=== PATIENT | female | born 1940 | race Caucasian/White ===

== ENCOUNTER 2023-03-18 12:04 | Emergency (ER) | payer OTHER, SELFPAY ==
[2023-03-18 12:05] VITALS: BP 108/63
[2023-03-18 13:33] VITALS: BMI 21.9
[2023-03-18 14:01] LABS: % Basophils 0.5 % (0-2); % Eosinophils 0.4 % (0-6); % Immature Granulocytes 0.4 % (0-0.5); % Lymphocytes 11.4 % (20.5-51.1); % Monocytes 5.5 % (1.7-9.3); % Neutrophils 81.8 % (42.2-75.2); Absolute Lymphocytes 0.9 10^3/uL (1.2-3.4); Absolute Monocytes 0.4 10^3/uL (0.1-0.6); Absolute Neutrophils 6.4 10^3/uL (1.4-6.5); Hematocrit 28.8 % (37.0-47.0); Hemoglobin 9.7 g/dL (12.0-16.0); Mean Corp Hgb Conc. 33.7 g/dL (33.0-37.0); Mean Corpuscular Hgb 31.3 pg (27.0-31.0); Mean Corpuscular Volume 92.9 fL (81.0-99.0); Nucleated Red Blood Cells % 0 %; Platelet Count 198 10^3/uL (130-400); Red Cell Dist. Width 13.2 % (11.5-14.5); White Blood Cell Count 7.8 10^3/uL (4.8-10.8)
[2023-03-18 14:05] VITALS: BP 104/71
[2023-03-18 14:18] LABS: ALT (SGPT) 15 U/L (0-35); AST (SGOT) 25 U/L (14-36); Albumin 3.9 g/dl (3.5-5.0); Alkaline Phosphatase 69 U/L (38-126); Blood Urea Nitrogen 44 mg/dl (7-17); Calcium 8.9 mg/dl (8.4-10.2); Carbon Dioxide 27 mmol/L (22-30); Chloride 102 mmol/L (98-107); Estimated Creatinine Clearance 40 ml/min; Glucose 83 mg/dl (70-99); Potassium 4.8 mmol/L (3.5-5.1); Sodium 134 mmol/L (135-145); Total Bilirubin 0.6 mg/dl (0.2-1.3); Total Protein 6.5 g/dl (6.3-8.2)
[2023-03-18 14:44] LABS: Troponin I < 0.012 ng/ml
[2023-03-18 15:00] VITALS: BP 121/77
[2023-03-18 15:17] LABS: Urine Albumin Negative (Neg - Trace); Urine Bilirubin Negative (Negative); Urine Character Clear (Clear); Urine Color Yellow; Urine Glucose Negative (Negative); Urine Ketone Negative (Negative); Urine Leukocyte Negative (Negative); Urine Nitrite Negative (Negative); Urine Occult Blood Negative (Negative); Urine Specific Gravity 1.015 (<1.030); Urine Urobilinogen Negative (Neg - 1+)
--- NOTE | 2023-03-18 15:36 | ED.GENMED ---
History of Present Illness
General
Chief Complaint: Cardiac Symptoms
Source: patient and records
Exam Limitations: none
Time Seen by Provider: 03/18/23 13:24
Nursing documentation reviewed up to this point in time: agreed with
Travel History
Have you had any contact with someone who has COVID-19?: No
Do you have any symptoms of coronavirus? Fever > 100 degrees, chills, cough, shortness of breath, sore throat, loss of taste or smell, muscle aches, or headache?: No
History of Present Illness
History of Present Illness:
Patient is an 82-year-old female who presents to the emergency department believing she is in atrial fibrillation. Patient states it started last night when she developed pain in the back of her neck that is similar to when she has atrial
fibrillation in the past. Patient is weak in the arms and legs. Patient went to the gym this morning but because of weakness after 10 minutes she stopped and felt lightheaded as though she was going to pass out. Patient states her blood pressure
last night was 113/69 with a pulse ox of 95% and a heart rate of 90. Patient denies any recent illnesses or injuries. Patient denies cough, nasal congestion, sore throat, fever or chills. Patient denies any weight changes. Patient denies
shortness of breath or palpitations. Patient denies chest pain. Patient has been constipated but denies any melena or hematochezia. Patient did feel some reflux with other night with burping and some burning in her stomach and neck.
Past History
Past History
ED Past Medical History: Arrthythmia (Atrial fibrillation), HTN and Other (mild/moderate Mitral regurgitation)
ED Past Surgical History: Gynecological (Oophorectomy due to tubal )
Social History
Tobacco: Former smoker
Alcohol: Occasional
Drug: None
Personal:
Living: with family
Review of Systems
Review of Systems
All Other Systems: ROS reviewed and negative except as documented in HPI and ROS
Constitutional: Reports fatigue; Denies fever, weight loss or chills
EENT: Reports no symptoms
Respiratory: Reports no symptoms
Cardiac: Reports no symptoms
ABD/GI: Reports constipated and other (Burping with burning in the upper abdomen); Denies nausea, vomiting, diarrhea, bloody stools, black stools or anorexia
: Reports no symptoms
Musculoskeletal: Reports neck pain
Skin: Reports no symptoms
Neurological: Reports no symptoms
Hematologic/Lymphatic: Reports no symptoms
Phy Exam
Physical Exam
Physical Exam:
Physical Exam
General: No apparent distress, alert and appropriate, well nourished, well hydrated
HENT: Normocephalic, supple with no lymphadenopathy, no thyromegaly. No tenderness to palpation and full range of motion
Eyes: Clear sclera, conjuctiva without injection
Heart: Regular rhythm and rate. No S3, S4. No murmur. No NVD, bruit
Lungs: No respiratory distress, no stridor, lung sounds clear and equal bilaterally
Abdomen: Soft, nontender, no organomegaly, no CVA tenderness, BS good
Neuro: Alert and oriented x 3, CN II - XII intact, no motor focality, no cerebellar dysfunction
Skin: no rash
Psychiatric: well kept. interactive and cooperative
Extremities: No edema, cyanosis, tenderness, Good and equal peripheral pulses.
Course
Orders/Labs/Results
Orders:
Orders
03/18/23 12:08
ECG [Electrocardiogram (*1)] Urgent
Reason for Study: Atrial Fibrillation
03/18/23 12:09
EKG- Treatment ONCE
03/18/23 13:46
CMP [Comprehensive Metabolic Panel] Urgent
Complete Blood Count/With Diff Urgent
TSH Reflex To Free T4 Urgent
03/18/23 14:05
Troponin I Urgent
03/18/23 15:08
Urinalysis Reflex To Culture Urgent
Date Specimen was Collected: 03/18/23
Time Specimen was Collected: 15:03
Abnormal Lab Results
03/18/23
13:46
RBC 3.10 L 10^6/uL
(4.20-5.40)
Hgb 9.7 L g/dL
(12.0-16.0)
Hct 28.8 L %
(37.0-47.0)
MCH 31.3 H pg
(27.0-31.0)
MPV 11.0 H fL
(7.4-10.4)
Absolute Lymphs (auto) 0.9 L 10^3/uL
(1.2-3.4)
Neutrophils % 81.8 H %
(42.2-75.2)
Lymphocytes % 11.4 L %
(20.5-51.1)
Sodium 134 L mmol/L
(135-145)
BUN 44 H mg/dl
(7-17)
Creatinine 1.1 H mg/dL
(0.6-1.0)
03/18/23 13:46
03/18/23 13:46
Vital Signs
Initial and Last Documented VS:
Initial Vital Signs
Pulse Resp BP Pulse Ox
73 18 108/63 98
03/18/23 12:05 03/18/23 12:05 03/18/23 12:05 03/18/23 12:05
Last Documented Vital Signs
Pulse Resp BP Pulse Ox
65 16 123/54 100
03/18/23 16:00 03/18/23 16:00 03/18/23 16:00 03/18/23 15:45
*Pulse Oximetry
Patient hypoxic: no
*EKG
Interpreted by ED Provider?: Yes
EKG Intrepretation Date: 03/18/23
EKG Intrepretation Time: 15:40
Interpretation: normal
Comparison EKG: no changes
Heart Rate: 66
Rate: normal
Rhythm: sinus
[place]: normal axis
Interval: normal interval
QRS Pattern: normal QRS
Ischemia: non-specific ST changes
*Accident Examiner Interpretation
Rate: normal
Interpretation: normal
Heart Rate: 66
Rhythm: sinus
*Critical Care Note
Total Time (30-74mins, 75-104mins- exclusive of procedures): Not Applicable
Update Note
Update Note:
Patient's BUN and creatinine are elevated. The BUN is significantly different from previous. Do not see the patient being on an ARB or an WAI inhibitor. Will have the patient follow back up with her family doctor and encourage hydration. This
could be why the patient feels the way she does. The other possibility is the patient has an upper GI bleed however the patient has no history of melena and only recently had some reflux. Patient needs to have follow-up with the family doctor
patient will be discharged.
ED Attending Note
-
Portions of this chart may have been created with voice recognition software.� Occasional wrong word or��sound alike� substitutions may have occurred due to the inherent limitations of voice recognition software.
Discharge Plan
Departure
Patient Disposition: Home (Routine Discharge)
Date of Disposition: 03/18/23
Time of Disposition: 16:47
Patient with high blood pressure during this ER visit?: No
Condition: Good
Covid-19: Not Applicable
Discharge Problem:
Renal insufficiency, Gastroesophageal reflux disease
Instructions: Dehydration, Adult (DC), Acid Reflux and GERD in Adults (DC)
Prescriptions:
New
pantoprazole [Protonix] 40 mg tablet,delayed release (DR/EC)
40 mg PO BID Qty: 30 0RF
No Action
acetaminophen [Tylenol Extra Strength] 500 MG tablet
1,000 mg PO Q6HPRN PRN (Reason: mild pain)
metoprolol succinate 25 MG tablet extended release 24 hr
50 mg PO BID
cyclosporine [Restasis] 10 DROPS dropperette
1 drp BOTH EYES BID
Eliquis 5 MG tablet
5 mg PO BID
alprazolam 0.5 MG tablet
0.5 mg PO HS
carboxymethylcellulose sodium [TheraTears] 6 DROPS dropperette,gel
1 drops BOTH EYES TID
melatonin 5 MG tablet
10 mg PO HS
psyllium Packet
1 packet PO BID
ursodiol 300 mg Capsule
300 mg PO TID
venlafaxine 75 mg capsule,extended release 24hr
75 mg PO DAILY
amoxicillin-pot clavulanate 875-125 mg tablet
1 tab PO [id number]
Patient Comments:
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
bupropion HCl 150 mg tablet extended release 24 hr
150 mg PO DAILY
calcium carb-mag ox-zinc gluc 333-133-5 mg Tablet
1 tab PO DAILY
dofetilide 125 mcg Capsule
125 mcg PO Q12H Qty: 60 0RF
Referrals:
Marek Hartley CRNP [Family Provider] - Follow up in 5-7 days
Activity Restrictions/Additional Instructions:
Your BUN and creatinine are elevated. You need to hydrate and then have your labs repeated. This could be either gastrointestinal or kidney problems. Is essentially you follow-up with your family doctor and have your labs rechecked. If you feel
worse please return to the emergency department.
Interventions
Interventions:
*Risk Screen - Suicide Last Done: 03/18/23 13:33
*General Assessment Last Done: 03/18/23 13:33
*Neglect/Abuse Screening Last Done: 03/18/23 13:33
*ED COVID-19 Vaccine History Last Done: 03/18/23 12:05
ED- Pulmonary Assessment Last Done: 03/18/23 13:33
ED- Cardiac Assessment Last Done: 03/18/23 13:33
[2023-03-18 15:52] LABS: TSH Reflex To Free T4 2.39 uIU/ml (0.47-4.68)
[2023-03-18 16:00] VITALS: BP 123/54
[2023-03-18 16:36] VITALS: BP 129/62
== END 2023-03-18 17:15 | disposition home or self-care (01) ==
LOC: EMR 12:04
PROVIDERS: EMERGENCY PHYSICIAN Emergency Medicine; FAMILY PHYSICIAN Nurse Practitioner Adult Health
DX: K21.9 Gastro-esophageal reflux disease without esophagitis (principal); N28.9 Disorder of kidney and ureter, unspecified; Z87.891 Personal history of nicotine dependence; I48.91 Unspecified atrial fibrillation
CPT/HCPCS: 99284; 80053; 81003; 84443; 84484; 85025; 93005

== ENCOUNTER → 2023-03-25 12:06 | Outpatient (REF) | payer OTHER, SELFPAY ==
[2023-03-25 12:49] LABS: % Basophils 0.3 % (0-2); % Eosinophils 0.4 % (0-6); % Immature Granulocytes 0.7 % (0-0.5); % Lymphocytes 8.3 % (20.5-51.1); % Monocytes 5.2 % (1.7-9.3); % Neutrophils 85.1 % (42.2-75.2); Absolute Immature Granulocytes 0.1 10^3/uL (0-0.05); Absolute Lymphocytes 0.9 10^3/uL (1.2-3.4); Absolute Monocytes 0.5 10^3/uL (0.1-0.6); Absolute Neutrophils 8.8 10^3/uL (1.4-6.5); Hematocrit 28.1 % (37.0-47.0); Hemoglobin 9.4 g/dL (12.0-16.0); Mean Corp Hgb Conc. 33.5 g/dL (33.0-37.0); Mean Corpuscular Volume 95.6 fL (81.0-99.0); Mean Platelet Volume 11.1 fL (7.4-10.4); Nucleated Red Blood Cells % 0 %; Platelet Count 203 10^3/uL (130-400); Red Blood Cell Count 2.94 10^6/uL (4.20-5.40); Red Cell Dist. Width 14.1 % (11.5-14.5); White Blood Cell Count 10.4 10^3/uL (4.8-10.8)
[2023-03-25 13:23] LABS: ALT (SGPT) 56 U/L (0-35); AST (SGOT) 46 U/L (14-36); Albumin 3.7 g/dl (3.5-5.0); Alkaline Phosphatase 124 U/L (38-126); Blood Urea Nitrogen 23 mg/dl (7-17); Calcium 8.9 mg/dl (8.4-10.2); Carbon Dioxide 21 mmol/L (22-30); Chloride 103 mmol/L (98-107); Glucose 98 mg/dl (70-99); Iron 93 ug/dl (37-170); Sodium 137 mmol/L (135-145); Total Bilirubin 1.7 mg/dl (0.2-1.3); Total Protein 6.5 g/dl (6.3-8.2); eGFR > 60.00
[2023-03-25 13:32] LABS: Percent Saturation 25 % (20-50); Total Iron Binding Capacity 372 ug/dl (265-497)
[2023-03-25 13:52] LABS: Ferritin 27.7 ng/ml (11.1-264.0)
[2023-03-27 14:28] LABS: H. pylori Breath Test Positive (Negative)
== END ==
LOC: REG 12:06
PROVIDERS: ATTENDING PHYSICIAN Nurse Practitioner Adult Health
DX: D64.9 Anemia, unspecified (principal); R12 Heartburn; R14.2 Eructation; R06.09 Other forms of dyspnea; R10.13 Epigastric pain; E86.0 Dehydration
CPT/HCPCS: 36415; 80053; 82728; 83013; 83540; 83550; 85025

== ENCOUNTER → 2023-04-02 14:57 | Outpatient (REF) | payer OTHER, SELFPAY ==
[2023-04-02 15:57] LABS: % Basophils 0.5 % (0-2); % Eosinophils 1.6 % (0-6); % Immature Granulocytes 0.4 % (0-0.5); % Lymphocytes 13.3 % (20.5-51.1); % Monocytes 6.8 % (1.7-9.3); % Neutrophils 77.4 % (42.2-75.2); Absolute Eosinophils 0.1 10^3/uL (0-0.7); Absolute Monocytes 0.5 10^3/uL (0.1-0.6); Absolute Neutrophils 5.7 10^3/uL (1.4-6.5); Hematocrit 30.4 % (37.0-47.0); Mean Corp Hgb Conc. 32.9 g/dL (33.0-37.0); Mean Corpuscular Hgb 31.3 pg (27.0-31.0); Mean Platelet Volume 10.5 fL (7.4-10.4); Nucleated Red Blood Cells % 0 %; Platelet Count 324 10^3/uL (130-400); Red Cell Dist. Width 13.7 % (11.5-14.5); White Blood Cell Count 7.4 10^3/uL (4.8-10.8)
== END ==
LOC: REG 14:57
PROVIDERS: ATTENDING PHYSICIAN Nurse Practitioner Adult Health
DX: R74.8 Abnormal levels of other serum enzymes (principal)
CPT/HCPCS: 36415; 85025

== ENCOUNTER → 2023-04-13 08:13 | Day surgery (SDC) | payer OTHER, SELFPAY | LOC: GI 08:13 | PROVIDERS: ATTENDING PHYSICIAN Internal Medicine Gastroenterology | DX: R12 Heartburn (principal); D64.9 Anemia, unspecified; K31.89 Other diseases of stomach and duodenum; K29.50 Unspecified chronic gastritis without bleeding; Z87.11 Personal history of peptic ulcer disease | CPT/HCPCS: 43239; 88305; 88342 ==

== ENCOUNTER → 2023-04-15 15:29 | Outpatient (REF) | payer OTHER, SELFPAY ==
[2023-04-15 16:03] LABS: Hematocrit 33.1 % (37.0-47.0); Mean Corp Hgb Conc. 33.2 g/dL (33.0-37.0); Mean Corpuscular Hgb 29.6 pg (27.0-31.0); Mean Platelet Volume 10.1 fL (7.4-10.4); Platelet Count 259 10^3/uL (130-400); Red Blood Cell Count 3.72 10^6/uL (4.20-5.40); Red Cell Dist. Width 13.2 % (11.5-14.5); White Blood Cell Count 6.5 10^3/uL (4.8-10.8)
[2023-04-15 16:25] LABS: ALT (SGPT) 12 U/L (0-35); AST (SGOT) 27 U/L (14-36); Albumin 4.1 g/dl (3.5-5.0); Alkaline Phosphatase 85 U/L (38-126); Direct Bilirubin 0.6 mg/dl (0.0-0.4); Iron 70 ug/dl (37-170); Total Bilirubin 0.6 mg/dl (0.2-1.3)
[2023-04-15 16:35] LABS: Percent Saturation 18 % (20-50); Total Iron Binding Capacity 379 ug/dl (265-497)
[2023-04-15 17:13] LABS: Ferritin 16.2 ng/ml (11.1-264.0)
[2023-04-15 17:44] LABS: Folate 7.5 ng/ml (2.76-20); Vitamin B12 568 pg/ml (239-931)
== END ==
LOC: REG 15:29
PROVIDERS: ATTENDING PHYSICIAN Nurse Practitioner Family; FAMILY PHYSICIAN Nurse Practitioner Adult Health; OTHER PHYSICIAN Internal Medicine Gastroenterology
DX: K74.3 Primary biliary cirrhosis (principal); D64.9 Anemia, unspecified
CPT/HCPCS: 36415; 80076; 82607; 82728; 82746; 83540; 83550; 85027

== ENCOUNTER → 2023-05-04 08:51 | Outpatient (REF) | payer OTHER, SELFPAY | LOC: RAD 08:51 | PROVIDERS: ATTENDING PHYSICIAN Nurse Practitioner Family; FAMILY PHYSICIAN Nurse Practitioner Adult Health; REFERRING PHYSICIAN Internal Medicine Gastroenterology | DX: K74.3 Primary biliary cirrhosis (principal) | CPT/HCPCS: 76700 ==

== ENCOUNTER → 2023-05-14 13:46 | Outpatient (REF) | payer OTHER, SELFPAY ==
[2023-05-14 15:45] LABS: Hematocrit 32.9 % (37.0-47.0); Hemoglobin 10.6 g/dL (12.0-16.0); Mean Corp Hgb Conc. 32.2 g/dL (33.0-37.0); Mean Corpuscular Hgb 27.9 pg (27.0-31.0); Mean Corpuscular Volume 86.6 fL (81.0-99.0); Mean Platelet Volume 11.3 fL (7.4-10.4); Platelet Count 220 10^3/uL (130-400); Red Cell Dist. Width 13.6 % (11.5-14.5); White Blood Cell Count 6.2 10^3/uL (4.8-10.8)
[2023-05-14 16:20] LABS: Iron 58 ug/dl (37-170)
[2023-05-14 16:30] LABS: Percent Saturation 12 % (20-50); Total Iron Binding Capacity 459 ug/dl (265-497)
[2023-05-14 16:55] LABS: Ferritin 11.3 ng/ml (11.1-264.0)
[2023-05-14 17:26] LABS: Folate 10.9 ng/ml (2.76-20); Vitamin B12 877 pg/ml (239-931)
== END ==
LOC: REG 13:46
PROVIDERS: ATTENDING PHYSICIAN Internal Medicine Gastroenterology; FAMILY PHYSICIAN Nurse Practitioner Adult Health
DX: D64.9 Anemia, unspecified (principal); Z79.899 Other long term (current) drug therapy
CPT/HCPCS: 36415; 82607; 82728; 82746; 83540; 83550; 83735; 85027

== ENCOUNTER → 2023-05-19 13:34 | Outpatient (REF) | payer OTHER, SELFPAY | LOC: WDC 13:34 | PROVIDERS: ATTENDING PHYSICIAN Obstetrics & Gynecology; FAMILY PHYSICIAN Nurse Practitioner Adult Health | DX: Z12.31 Encounter for screening mammogram for malignant neoplasm of breast (principal) | CPT/HCPCS: 77063; 77067 ==

== ENCOUNTER → 2023-06-23 11:12 | Outpatient (REF) | payer OTHER, SELFPAY ==
[2023-06-23 12:23] LABS: Hematocrit 38.4 % (37.0-47.0); Hemoglobin 12.2 g/dL (12.0-16.0); Mean Corp Hgb Conc. 31.8 g/dL (33.0-37.0); Mean Corpuscular Hgb 27.9 pg (27.0-31.0); Mean Corpuscular Volume 87.7 fL (81.0-99.0); Mean Platelet Volume 10.7 fL (7.4-10.4); Platelet Count 243 10^3/uL (130-400); Red Blood Cell Count 4.38 10^6/uL (4.20-5.40); Red Cell Dist. Width 17.2 % (11.5-14.5); White Blood Cell Count 7.2 10^3/uL (4.8-10.8)
[2023-06-23 13:00] LABS: ALT (SGPT) 11 U/L (0-35); AST (SGOT) 22 U/L (14-36); Albumin 4.4 g/dl (3.5-5.0); Alkaline Phosphatase 77 U/L (38-126); Blood Urea Nitrogen 27 mg/dl (7-17); Calcium 10.2 mg/dl (8.4-10.2); Carbon Dioxide 28 mmol/L (22-30); Chloride 100 mmol/L (98-107); Glucose 89 mg/dl (70-99); Potassium 4.2 mmol/L (3.5-5.1); Sodium 138 mmol/L (135-145); Total Bilirubin 0.7 mg/dl (0.2-1.3); Total Protein 7.4 g/dl (6.3-8.2); eGFR 45.48
[2023-06-23 13:09] LABS: NT-proBNP 606 pg/ml
== END ==
LOC: REG 11:12
PROVIDERS: ATTENDING PHYSICIAN Physician Assistant Medical
DX: R06.09 Other forms of dyspnea (principal)
CPT/HCPCS: 36415; 71046; 80053; 83880; 85027

== ENCOUNTER → 2023-07-22 06:31 | Day surgery (SDC) | payer OTHER, SELFPAY | LOC: GI 06:31 | PROVIDERS: ATTENDING PHYSICIAN Internal Medicine Gastroenterology | DX: K55.32 Stage 2 necrotizing enterocolitis (principal); K22.89 Other specified disease of esophagus | CPT/HCPCS: 44361; 44366; 88305 ==

== ENCOUNTER → 2023-09-29 10:55 | Outpatient (REF) | payer OTHER, SELFPAY ==
[2023-09-29 12:01] LABS: % Basophils 0.9 % (0-2); % Immature Granulocytes 0.2 % (0-0.5); % Lymphocytes 24.5 % (20.5-51.1); % Monocytes 9.3 % (1.7-9.3); % Neutrophils 62.1 % (42.2-75.2); Absolute Eosinophils 0.1 10^3/uL (0-0.7); Absolute Lymphocytes 1.1 10^3/uL (1.2-3.4); Absolute Monocytes 0.4 10^3/uL (0.1-0.6); Absolute Neutrophils 2.7 10^3/uL (1.4-6.5); Hematocrit 38.5 % (37.0-47.0); Mean Corp Hgb Conc. 33.8 g/dL (33.0-37.0); Mean Corpuscular Hgb 30.8 pg (27.0-31.0); Mean Corpuscular Volume 91.2 fL (81.0-99.0); Mean Platelet Volume 10.4 fL (7.4-10.4); Nucleated Red Blood Cells % 0 %; Platelet Count 202 10^3/uL (130-400); Red Blood Cell Count 4.22 10^6/uL (4.20-5.40); Red Cell Dist. Width 13.3 % (11.5-14.5); White Blood Cell Count 4.4 10^3/uL (4.8-10.8)
[2023-09-29 12:10] LABS: INR 1.06; PT 13.6 Sec (11.4-14.6)
[2023-09-29 14:29] LABS: Vitamin D, 25-OH*** 60.4 ng/mL (30-80)
[2023-09-29 14:46] LABS: Ferritin 35.7 ng/ml (11.1-264.0)
[2023-09-29 14:48] LABS: ALT (SGPT) 13 U/L (0-35); AST (SGOT) 25 U/L (14-36); Albumin 4.3 g/dl (3.5-5.0); Alkaline Phosphatase 96 U/L (38-126); Blood Urea Nitrogen 22 mg/dl (7-17); Calcium 9.5 mg/dl (8.4-10.2); Carbon Dioxide 29 mmol/L (22-30); Chloride 101 mmol/L (98-107); GGTP 58 U/L (12-43); Glucose 85 mg/dl (70-99); Iron 148 ug/dl (37-170); Potassium 4.5 mmol/L (3.5-5.1); Sodium 138 mmol/L (135-145); Total Bilirubin 0.6 mg/dl (0.2-1.3); Total Protein 6.9 g/dl (6.3-8.2); eGFR 50.48
[2023-09-29 14:58] LABS: Percent Saturation 49 % (20-50); Total Iron Binding Capacity 302 ug/dl (265-497)
== END ==
LOC: REG 10:55
PROVIDERS: ATTENDING PHYSICIAN Internal Medicine Transplant Hepatology; FAMILY PHYSICIAN Nurse Practitioner Adult Health
DX: K74.3 Primary biliary cirrhosis (principal); D50.9 Iron deficiency anemia, unspecified
CPT/HCPCS: 36415; 80053; 82306; 82728; 82977; 83540; 83550; 84446; 84590; 85025; 85610

== ENCOUNTER → 2023-12-30 10:02 | Outpatient (REF) | payer OTHER, SELFPAY ==
[2023-12-30 12:13] LABS: ALT (SGPT) 19 U/L (0-35); AST (SGOT) 30 U/L (14-36); Albumin 4.5 g/dl (3.5-5.0); Alkaline Phosphatase 90 U/L (38-126); Direct Bilirubin 0.1 mg/dl (0.0-0.4); Total Bilirubin 1.1 mg/dl (0.2-1.3); Total Protein 7.1 g/dl (6.3-8.2)
== END ==
LOC: REG 10:02
PROVIDERS: ATTENDING PHYSICIAN Internal Medicine Gastroenterology; FAMILY PHYSICIAN Nurse Practitioner Adult Health
DX: K74.3 Primary biliary cirrhosis (principal)
CPT/HCPCS: 36415; 80076

== ENCOUNTER → 2024-01-07 09:15 | Outpatient (REF) | payer OTHER, SELFPAY ==
[2024-01-07 10:09] LABS: % Basophils 0.7 % (0-2); % Eosinophils 2.1 % (0-6); % Immature Granulocytes 0.2 % (0-0.5); % Monocytes 8.6 % (1.7-9.3); % Neutrophils 67.4 % (42.2-75.2); Absolute Eosinophils 0.1 10^3/uL (0-0.7); Absolute Lymphocytes 0.9 10^3/uL (1.2-3.4); Absolute Monocytes 0.4 10^3/uL (0.1-0.6); Absolute Neutrophils 2.8 10^3/uL (1.4-6.5); Hematocrit 39.6 % (37.0-47.0); Hemoglobin 13.3 g/dL (12.0-16.0); Mean Corp Hgb Conc. 33.6 g/dL (33.0-37.0); Mean Corpuscular Hgb 31.4 pg (27.0-31.0); Mean Corpuscular Volume 93.6 fL (81.0-99.0); Mean Platelet Volume 10.9 fL (7.4-10.4); Nucleated Red Blood Cells % 0 %; Platelet Count 198 10^3/uL (130-400); Red Blood Cell Count 4.23 10^6/uL (4.20-5.40); Red Cell Dist. Width 12.5 % (11.5-14.5); Reticulocyte Count 1.3 % (0.4-2.8); White Blood Cell Count 4.2 10^3/uL (4.8-10.8)
[2024-01-07 10:56] LABS: Iron 137 ug/dl (37-170)
[2024-01-07 11:29] LABS: Ferritin 25.1 ng/ml (11.1-264.0)
== END ==
LOC: REG 09:15
PROVIDERS: ATTENDING PHYSICIAN Internal Medicine Gastroenterology; FAMILY PHYSICIAN Nurse Practitioner Adult Health
DX: Z86.2 Personal history of diseases of the blood and blood-forming organs and certain disorders involving the immune mechanism (principal)
CPT/HCPCS: 36415; 82728; 83540; 85025; 85045

== ENCOUNTER 2024-03-15 09:20 | Outpatient (RCR) | payer OTHER, SELFPAY | END 2024-03-15 23:59 | disposition home or self-care (01) | LOC: RPT 09:20 | PROVIDERS: ATTENDING PHYSICIAN Internal Medicine Gastroenterology; FAMILY PHYSICIAN Nurse Practitioner Adult Health | DX: R15.2 Fecal urgency (principal); M62.89 Other specified disorders of muscle; Z73.6 Limitation of activities due to disability | CPT/HCPCS: 97163; 97530 ==

== ENCOUNTER 2024-04-21 13:50 | Outpatient (RCR) | payer OTHER, SELFPAY | END 2024-04-21 23:59 | disposition home or self-care (01) | LOC: RPT 13:50 | PROVIDERS: ATTENDING PHYSICIAN Internal Medicine Gastroenterology; FAMILY PHYSICIAN Nurse Practitioner Adult Health | DX: R15.2 Fecal urgency (principal); M62.89 Other specified disorders of muscle (principal); Z73.6 Limitation of activities due to disability | CPT/HCPCS: 97110; 97112; 97530 ==

== ENCOUNTER 2024-05-17 13:55 | Outpatient (RCR) | payer OTHER, SELFPAY | END 2024-05-17 23:59 | disposition home or self-care (01) | LOC: RPT 13:55 | PROVIDERS: ATTENDING PHYSICIAN Internal Medicine Gastroenterology; FAMILY PHYSICIAN Nurse Practitioner Adult Health | DX: R15.2 Fecal urgency (principal); M62.89 Other specified disorders of muscle; Z73.6 Limitation of activities due to disability | CPT/HCPCS: 97014; 97112 ==

== ENCOUNTER → 2024-05-24 12:56 | Outpatient (REF) | payer OTHER, SELFPAY | LOC: WDC 12:56 | PROVIDERS: ATTENDING PHYSICIAN Nurse Practitioner Adult Health | DX: Z12.31 Encounter for screening mammogram for malignant neoplasm of breast (principal); Z78.0 Asymptomatic menopausal state | CPT/HCPCS: 77063; 77067 ==

== ENCOUNTER 2024-07-07 12:43 | Outpatient (RCR) | payer OTHER, SELFPAY | END 2024-07-07 23:59 | disposition home or self-care (01) | LOC: RPT 12:43 | PROVIDERS: ATTENDING PHYSICIAN Internal Medicine Gastroenterology; FAMILY PHYSICIAN Nurse Practitioner Adult Health | DX: R15.2 Fecal urgency (principal); M62.89 Other specified disorders of muscle; Z73.6 Limitation of activities due to disability | CPT/HCPCS: 97014; 97112; 97140; 97530 ==

== ENCOUNTER → 2024-08-08 09:00 | Outpatient (REF) | payer OTHER, SELFPAY | LOC: REG 09:00 | PROVIDERS: ATTENDING PHYSICIAN Internal Medicine Rheumatology; FAMILY PHYSICIAN Nurse Practitioner Adult Health | DX: E55.9 Vitamin D deficiency, unspecified (principal); K74.3 Primary biliary cirrhosis; M81.0 Age-related osteoporosis without current pathological fracture | CPT/HCPCS: 36415 ==

== ENCOUNTER → 2024-08-09 10:36 | Outpatient (REF) | payer OTHER, SELFPAY ==
[2024-08-09 11:26] LABS: % Basophils 0.6 % (0-2); % Eosinophils 1.6 % (0-6); % Immature Granulocytes 0.4 % (0-0.5); % Lymphocytes 19.4 % (20.5-51.1); % Monocytes 7.8 % (1.7-9.3); % Neutrophils 70.2 % (42.2-75.2); Absolute Eosinophils 0.1 10^3/uL (0-0.7); Absolute Lymphocytes 0.9 10^3/uL (1.2-3.4); Absolute Monocytes 0.4 10^3/uL (0.1-0.6); Absolute Neutrophils 3.4 10^3/uL (1.4-6.5); Hematocrit 37.1 % (37.0-47.0); Hemoglobin 12.2 g/dL (12.0-16.0); Mean Corp Hgb Conc. 32.9 g/dL (33.0-37.0); Mean Corpuscular Hgb 31.6 pg (27.0-31.0); Mean Corpuscular Volume 96.1 fL (81.0-99.0); Mean Platelet Volume 10.8 fL (7.4-10.4); Nucleated Red Blood Cells % 0 %; Platelet Count 168 10^3/uL (130-400); Red Blood Cell Count 3.86 10^6/uL (4.20-5.40); Red Cell Dist. Width 13.1 % (11.5-14.5); White Blood Cell Count 4.9 10^3/uL (4.8-10.8)
[2024-08-09 11:48] LABS: ALT (SGPT) 17 U/L (0-35); AST (SGOT) 26 U/L (14-36); Albumin 4.4 g/dl (3.5-5.0); Alkaline Phosphatase 83 U/L (38-126); Blood Urea Nitrogen 27 mg/dl (7-17); Calcium 9.6 mg/dl (8.4-10.2); Carbon Dioxide 29 mmol/L (22-30); Chloride 106 mmol/L (98-107); Glucose 76 mg/dl (70-99); Potassium 4.4 mmol/L (3.5-5.1); Sodium 141 mmol/L (135-145); Total Protein 7.3 g/dl (6.3-8.2); eGFR > 60.00
[2024-08-09 11:51] LABS: C-Reactive Protein < 5.00 mg/L (0.0-10.00)
[2024-08-09 12:21] LABS: Cortisol, Random 12.8 ug/dl; TSH 1.53 uIU/ml (0.47-4.68)
[2024-08-10 12:27] LABS: Intact PTH 52.2 pg/ml (13.6-85.8)
[2024-08-10 14:18] LABS: tTG IgA Antibody 5.5 EU/ml (0-19); tTG IgG Antibody 13.8 EU/ml (0-19)
[2024-08-11 01:42] LABS: IgA 165 mg/dl (70-400)
[2024-08-11 04:12] LABS: CTx 278 pg/mL
[2024-08-11 21:41] LABS: Endomysial IgA Antibody Titer <1:10 (<1:10)
== END ==
LOC: REG 10:36
PROVIDERS: ATTENDING PHYSICIAN Internal Medicine Rheumatology; FAMILY PHYSICIAN Nurse Practitioner Adult Health
DX: E55.9 Vitamin D deficiency, unspecified (principal); K74.3 Primary biliary cirrhosis; M81.0 Age-related osteoporosis without current pathological fracture
CPT/HCPCS: 36415; 80053; 82306; 82523; 82533; 82784; 83516; 83970; 84155; 84165; 84443; 85025; 86140; 86231

== ENCOUNTER → 2024-08-11 10:42 | Outpatient (REF) | payer OTHER, SELFPAY ==
[2024-08-11 11:29] LABS: 24 Hour Urine Total Volume 2600 ml
[2024-08-11 11:56] LABS: 24 Hour Urine Calcium 202.8 mg/day; Urine Calcium 7.8 mg/dl
== END ==
LOC: REG 10:42
PROVIDERS: ATTENDING PHYSICIAN Internal Medicine Rheumatology; FAMILY PHYSICIAN Nurse Practitioner Adult Health
DX: E55.9 Vitamin D deficiency, unspecified (principal); K74.3 Primary biliary cirrhosis; M81.0 Age-related osteoporosis without current pathological fracture
CPT/HCPCS: 81050; 82340

== ENCOUNTER 2024-08-11 13:11 | Outpatient (RCR) | payer OTHER, SELFPAY | END 2024-08-11 23:59 | disposition home or self-care (01) | LOC: RPT 13:11 | PROVIDERS: ATTENDING PHYSICIAN Internal Medicine Gastroenterology; FAMILY PHYSICIAN Nurse Practitioner Adult Health | DX: R15.2 Fecal urgency (principal); M62.89 Other specified disorders of muscle; Z73.6 Limitation of activities due to disability | CPT/HCPCS: 97014; 97112; 97530 ==

== ENCOUNTER 2024-08-31 14:32 | Outpatient (RCR) | payer OTHER, SELFPAY | END 2024-08-31 23:59 | disposition home or self-care (01) | LOC: RPT 14:32 | PROVIDERS: ATTENDING PHYSICIAN Internal Medicine Gastroenterology; FAMILY PHYSICIAN Nurse Practitioner Adult Health | DX: R15.2 Fecal urgency (principal); M62.89 Other specified disorders of muscle; Z73.6 Limitation of activities due to disability | CPT/HCPCS: 97014; 97112; 97530 ==

== ENCOUNTER → 2024-09-29 13:27 | Outpatient (REF) | payer OTHER, SELFPAY ==
[2024-09-29 14:21] LABS: Hematocrit 40.7 % (37.0-47.0); Hemoglobin 13.3 g/dL (12.0-16.0); Mean Corp Hgb Conc. 32.7 g/dL (33.0-37.0); Mean Corpuscular Volume 94.2 fL (81.0-99.0); Nucleated Red Blood Cells % 0 %; Platelet Count 207 10^3/uL (130-400); Red Cell Dist. Width 13.2 % (11.5-14.5)
[2024-09-29 14:51] LABS: ALT (SGPT) 19 U/L (0-35); AST (SGOT) 26 U/L (14-36); Albumin 4.4 g/dl (3.5-5.0); Alkaline Phosphatase 105 U/L (38-126); Blood Urea Nitrogen 26 mg/dl (7-17); Calcium 9.7 mg/dl (8.4-10.2); Carbon Dioxide 30 mmol/L (22-30); Chloride 103 mmol/L (98-107); Glucose 99 mg/dl (70-99); HDL Cholesterol 55 mg/dl; Iron 143 ug/dl (37-170); LDL Cholesterol, Calculated 100 mg/dl; Potassium 5.1 mmol/L (3.5-5.1); Sodium 139 mmol/L (135-145); Total Protein 7.2 g/dl (6.3-8.2); Very Low Density Lipoprotein 23 mg/dl (0-30); eGFR 56.25
[2024-09-29 15:36] LABS: Vitamin B12 > 1000 pg/ml (239-931)
== END ==
LOC: REG 13:27
PROVIDERS: ATTENDING PHYSICIAN Nurse Practitioner Adult Health
DX: I10 Essential (primary) hypertension (principal); E78.2 Mixed hyperlipidemia; D50.9 Iron deficiency anemia, unspecified; R53.82 Chronic fatigue, unspecified
CPT/HCPCS: 36415; 80053; 80061; 82607; 83540; 85025

== ENCOUNTER 2024-11-03 09:30 | Day surgery (SDC) | payer OTHER, SELFPAY ==
[2024-11-01 09:46] VITALS: BMI 22.2
== END 2024-11-03 10:29 | disposition home or self-care (01) ==
LOC: CATH 09:30
PROVIDERS: ATTENDING PHYSICIAN Internal Medicine Cardiovascular Disease; FAMILY PHYSICIAN Nurse Practitioner Adult Health
DX: I48.0 Paroxysmal atrial fibrillation (principal); I11.0 Hypertensive heart disease with heart failure; E78.00 Pure hypercholesterolemia, unspecified; I50.9 Heart failure, unspecified; F41.9 Anxiety disorder, unspecified; I48.92 Unspecified atrial flutter; K74.3 Primary biliary cirrhosis; M41.9 Scoliosis, unspecified; Z87.891 Personal history of nicotine dependence; Z79.01 Long term (current) use of anticoagulants; Z79.899 Other long term (current) drug therapy; Z86.0100 Personal history of colon polyps, unspecified; Z87.11 Personal history of peptic ulcer disease; Z88.1 Allergy status to other antibiotic agents; Z88.8 Allergy status to other drugs, medicaments and biological substances
CPT/HCPCS: 93005

== ENCOUNTER 2024-12-26 18:20 | Inpatient (IN) | payer OTHER, SELFPAY ==
[2024-12-26] VITALS (36 sets, daily range): BP systolic 103–166; BP diastolic 62–133; BMI 21.6
[2024-12-26 11:04] LABS: Hematocrit 44.4 % (37.0-47.0); Hemoglobin 14.6 g/dL (12.0-16.0); Mean Corp Hgb Conc. 32.9 g/dL (33.0-37.0); Mean Corpuscular Volume 94.9 fL (81.0-99.0); Nucleated Red Blood Cells % 0 %; Platelet Count 203 10^3/uL (130-400); Red Cell Dist. Width 13.2 % (11.5-14.5)
[2024-12-26 11:19] LABS: ALT (SGPT) 18 U/L (0-35); AST (SGOT) 26 U/L (14-36); Albumin 4.8 g/dl (3.5-5.0); Alkaline Phosphatase 86 U/L (38-126); Blood Urea Nitrogen 19 mg/dl (7-17); Calcium 9.9 mg/dl (8.4-10.2); Carbon Dioxide 27 mmol/L (22-30); Chloride 101 mmol/L (98-107); Glucose 105 mg/dl (70-99); Potassium 5.1 mmol/L (3.5-5.1); Sodium 138 mmol/L (135-145); Total Protein 7.8 g/dl (6.3-8.2); eGFR > 60.00
[2024-12-26 11:30] LABS: Troponin I < 0.012 ng/ml
--- NOTE | 2024-12-26 14:36 | ED.GENMED ---
History of Present Illness
General
Chief Complaint: Heart Rate Problem
Source: patient and family
Exam Limitations: none
Time Seen by Provider: 12/26/24 13:56
Nursing documentation reviewed up to this point in time: agreed with
History of Present Illness
History of Present Illness:
Note:
CHIEF COMPLAINT(S)
Irregular heartbeat and not feeling well, suspecting atrial fibrillation (AFib).
HISTORY OF PRESENT ILLNESS
The patient is an 84-year-old female with a past medical history notable for atrial fibrillation who presented with symptoms suggestive of AFib recurrence. She was scheduled for cardioversion a month ago but was found to be in normal rhythm on the
morning of the procedure, so it was not performed. During a recent episode starting Thursday night, the patient reported not feeling well, which persisted into Thursday. She described the sensation as similar to previous AFib episodes and contacted
her rag willow operator, Dr. Leslie, in October. He recommended increasing her metoprolol dosage when she felt symptoms. The patient takes metoprolol 25 mg at night, with an additional half dose of 12.5 mg in the afternoon when symptomatic. She also
reported consistent use of her anticoagulant medication, apixaban (Eliquis), without missing any doses. The patient has experienced AFib episodes multiple times in the past and previously underwent cardioversions. She is aware that reversion to a
regular rhythm is possible through either electrical cardioversion or medication.
MEDICATIONS
- Metoprolol: 25 mg at night, with an additional 12.5 mg in the afternoon as needed for symptoms.
- Apixaban (Eliquis): Consistently taken as prescribed, dose not specified in the conversation.
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
defiltilide
PHYSICAL EXAM
General: Alert, no acute distress.
Skin: Warm, dry.
Head: Normocephalic, atraumatic.
Neck: Supple, trachea midline.
Ears, nose, and throat: Oral mucosa moist.
Cardiovascular: Normal peripheral perfusion, No edema. tachycardia
Respiratory: Respirations are non-labored.
Gastrointestinal: Abdomen nondistended.
Back: Normal range of motion, Normal alignment.
Musculoskeletal: Normal range of motion, normal strength.
Neurological: Alert and oriented to person, place, time, and situation, No focal neurological deficit observed.
Psychiatric: Cooperative, appropriate mood & affect.
PLAN
1. Discuss with the patients rag willow operator regarding the possibility of proceeding with electrical cardioversion to restore normal sinus rhythm.
2. Evaluate the option of medication adjustments if appropriate.
3. Consider a consultation for potential adjustments to her current medication regimen, particularly concerning the management of atrial fibrillation.
DIFFERENTIAL DIAGNOSIS
The Differential Diagnosis includes, in no particular order and is not limited to:
1. Atrial fibrillation recurrence
2. Atypical angina
3. Heart failure exacerbation
4. Myocardial infarction
5. Tachycardia-induced cardiomyopathy
6. Electrolyte imbalance
7. Hyperthyroidism
8. Infective endocarditis
9. Pulmonary embolism
10. Non-cardiac causes such as anxiety or panic attacks
CARE-UPDATE
12/26/24 - 16:20
Patient exhibited initial success with cardioversion but reverted quickly to atrial fibrillation. Will proceed with hospital admission and initiate diltiazem drip for rate control.
EKG
My independent EKG interpretation is:
- Time of EK a.m. on December 26, 2024
- Rhythm: Atrial flutter with variable A.V. Block
- Heart Rate: 102 beats per minute
- ST Segment: Non-specific ST abnormality
- [place]: Normal axis
Disposition:
SUMMARY OF ENCOUNTER
The patient, an 84-year-old female with a known history of atrial fibrillation, presented to the emergency department with complaints of irregular heartbeat and feeling unwell, suspecting an episode of atrial fibrillation with rapid ventricular
response. The patient was experiencing symptoms similar to past episodes of atrial fibrillation. Initial cardioversion was performed but the rhythm reverted quickly back to atrial fibrillation. She was admitted for further management and started on
a diltiazem drip for rate control.
DISPOSITION
Admit to hospitalists for further evaluation and management.
ASSESSMENT
Atrial fibrillation with rapid ventricular response.
MANAGEMENT OF THE PATIENTS CARE WAS DISCUSSED WITH
Discussed with Dr. Weiss, rag willow operator, who will consult on the patient.
PLAN
Proceed with hospital admission and initiate diltiazem drip to achieve better rate control.
INDEPENDENT REVIEW OF LABS AND INTERPRETATION OF TESTS
My independent EKG interpretation is:
- Rhythm: Atrial flutter with variable A.V. Block
- Heart Rate: 102 beats per minute
- ST Segment: Non-specific ST abnormality
- [place]: Normal axis
MEDICAL DECISION MAKING
-Complexity of Data Reviewed: Chronic conditions affecting care including atrial fibrillation.
-Data:
Category 1
My independent interpretation of the EKG indicated atrial flutter with variable A.V. block.
Category 3
Discussion of management with rag willow operator Dr. Weiss for potential adjustments to the patients treatment plan and consultation.
DIAGNOSIS
I48.0 Atrial fibrillation and flutter.
Past History
Past History
ED Past Medical History: Arrthythmia (Atrial fibrillation), HTN and Other (mild/moderate Mitral regurgitation)
ED Past Surgical History: Gynecological (Oophorectomy due to tubal )
Social History
Tobacco: Former smoker
Alcohol: Occasional
Drug: None
Personal:
Living: with family
Phy Exam
Physical Exam
Physical Exam:
.
Course
Orders/Labs/Results
Orders:
Orders
12/26/24 10:27
EKG [Electrocardiogram (*1)] Urgent
Reason for Study: Chest Pain
EKG- Treatment ONCE
12/26/24 10:47
Complete Blood Count/With Diff Urgent
Comprehensive Metabolic Panel Urgent
Troponin I Urgent
12/26/24 14:34
ASA Classification Routine
Propofol [Diprivan] 50 mg IV NOW STA
12/26/24 15:30
Etomidate [Amidate 20 mg] 6 mg IV NOW STA
12/26/24 16:08
Diltiazem 125 mg/125 ml Nss [Cardizem] 125 mg in 125 ml IV NOW
Initial dose in mg/hr, then titrate:: 5
Titrate to keep:: Heart rate 80-100 bpm
Titrate by mg/hr:: 5 mg/hr
Frequency of titrations (minutes):: 15
Maximum dose in mg/hr:: 15
Abnormal Lab Results
12/26/24
10:47
MCH 31.2 H pg
(27.0-31.0)
MCHC 32.9 L g/dL
(33.0-37.0)
MPV 10.9 H fL
(7.4-10.4)
Absolute Lymphs (auto) 1.1 L 10^3/uL
(1.2-3.4)
Neutrophils % 77.4 H %
(42.2-75.2)
Lymphocytes % 16.3 L %
(20.5-51.1)
BUN 19 H mg/dl
(7-17)
Glucose 105 H mg/dl
(70-99)
Total Bilirubin 1.5 H mg/dl
(0.2-1.3)
12/26/24 10:47
12/26/24 10:47
Vital Signs
Initial and Last Documented VS:
Initial Vital Signs
Temp Pulse Resp BP Pulse Ox
98.5 F 95 18 153/95 100
12/26/24 10:36 12/26/24 10:36 12/26/24 10:36 12/26/24 10:36 12/26/24 10:36
Last Documented Vital Signs
Temp Pulse Resp BP Pulse Ox
98.1 F 123 20 157/100 98
12/26/24 15:55 12/26/24 15:58 12/26/24 15:58 12/26/24 15:58 12/26/24 15:58
Procedures
Moderate Sedation
ASA Risk Score: Class II
Chart and allergies reviewed: Yes
Consent for anesthesia obtained: Yes
Time out completed (validating right patient & procedure): Yes
Moderate Sedation Start Time(when first medication is given): 15:55
History of difficult intubation: No
Airway free of obstruction: No
Patient has a gag reflex: No
Patient is able to open mouth: No
Patient has no dentures: No
Patient has no loose teeth: No
Medication administered by Provider during Moderate Sedation: Other (etomidate)
Total dose administered: 6
Time drug administered: 15:55
Moderate Sedation Procedure End Time: 16:05
*Pulse Oximetry
SaO2: 99
Oxygen Mode of Delivery: Room air
Patient hypoxic: no
*Critical Care Note
Total Time (30-74mins, 75-104mins- exclusive of procedures): 30
comment:
Critical care statement: A total of 30 minutes of critical care time was provided for this patient. This includes management of unstable vital signs, evaluation of the patient at bedside, reviewing the patient's pertinent medical records, discussion
with consultants, review of old EKGs and review of pertinent medical records. This time with separate from time utilized to perform the aforementioned documented procedures
ED Attending Note
-
Portions of this chart may have been created with voice recognition software.� Occasional wrong word or��sound alike� substitutions may have occurred due to the inherent limitations of voice recognition software.
Discharge Plan
Departure
Patient Disposition: Admit
Date of Disposition: 12/26/24
Time of Disposition: 16:18
Admit to: IVU
Presentation/result/management discussed w/ accepting MD/DO: Hospitalist
Patient with high blood pressure during this ER visit?: Yes
Condition: Fair
Discharge Problem:
Atrial fibrillation with rapid ventricular response
Prescriptions:
No Action
metoprolol succinate 25 MG tablet extended release 24 hr
25 mg PO DAILY
Eliquis 5 MG tablet
5 mg PO BID
alprazolam 0.5 MG tablet
0.5 mg PO HS
ursodiol 300 mg Capsule
300 mg PO TID
ascorbic acid (vitamin C) 1,000 mg Tablet
1,000 mg PO DAILY
valacyclovir 1 gram Tablet
1,000 mg PO Q12H
Rx Instructions:
for 12 days
famotidine 40 mg Tablet
40 mg PO HS
estradiol 0.01 % (0.1 mg/gram) Cream
1 appful VAGINAL TUFR
Centrum Silver Tablet
1 tab PO DAILY
calcium citrate-vitamin D3 [Citracal plus D] 315 mg-5 mcg (200 unit) Tablet
1 tab PO BID
cyanocobalamin (vitamin B-12) 2,500 mcg Tablet
2,500 mcg PO DAILY
Vitamin B12
1 dose IM MONTHLY
dofetilide 125 mcg capsule
125 mcg PO TID
Referrals:
Marek Hartley CRNP [Family Provider, Internal Medicine]
Interventions
Interventions:
*Risk Screen - Suicide Last Done: 12/26/24 10:38
*General Assessment Last Done: 12/26/24 13:11
*Neglect/Abuse Screening Last Done: 12/26/24 13:11
*ED- Fall Risk Assessment Last Done: 12/26/24 13:11
*ED COVID-19 Vaccine History Last Done: 12/26/24 13:11
*ED Influenza Vaccine History Last Done: 12/26/24 13:11
ED- Cardiac Assessment Last Done: 12/26/24 13:11
ED- Pulmonary Assessment Last Done: 11/03/25 13:11
Discharge Date and Time
Print Language: ARMENIAN
[2024-12-26] MEDS: AMIDATE 20 MG 6 MG IV (15:55)
--- NOTE | 2024-12-26 16:19 | HPS.HSE ---
Addendum entered and electronically signed by Liban Mariscal MD 12/26/24 17:21:
This is an addendum to H&P written by Evie Obrien on 12/26/2024. �Patient seen and examined independently with SH[facility] TURNER.
84-year-old female past medical history of paroxysmal atrial fibrillation status post cardioversion x 4, pulmonary vein isolation on Eliquis, hypertension, hypercholesteremia, PACs/PVCs, HFpEF, moderate mitral regurgitation, GERD, peptic ulcer
disease, globus pharyngeus, colon polyps, diverticulosis, primary biliary cirrhosis, H. pylori, lumbar degenerative disease, scoliosis, hyperthyroidism, pelvic for dysfunction, iron deficiency anemia secondary to small bowel AVMs status post
enteroscopy cautery, dry eyes, anxiety, herpes simplex virus of clitoris, B12 deficiency, presenting with palpitations and fatigue 3 days ago.
Vital signs show tachycardia up to 130. �EKG shows atrial flutter with variable AV block.
Labs unremarkable.
Patient with atrial fibrillation with RVR. �Cardioversion was attempted which was initially successful twice but patient returned to atrial fibrillation. �Cardizem drip started. �Cardiology consulted.
Original Note:
Family Physician
-
Family Physician: Marek Hartley
Chief Complaint
-
palpitations
History of Present Illness
Patient is a 84-year-old female with past medical history significant for hypertension, paroxysmal atrial fibrillation, hyperlipidemia, depression/anxiety, HFpEF and GERD who presented to [facility] ED for evaluation of palpitations. Patient reports that
starting last Thursday12/23/2024 she felt 'off' with intermittent palpitations and feeling fatigued. Patient states this is how she has felt in the past when she was in atrial fibrillation. Cardioversion x2 attempted in ED and patient converted and
quickly back into atrial fibrillation. Denies any recent fever, chills, cough, shortness of breath, syncope, chest pain, nausea, vomiting, constipation, diarrhea or urinary symptoms.
Medical History
Past Medical History
Past Medical History: Reports Other
Additional Past Medical History:
hypertension
paroxysmal atrial fibrillation
hyperlipidemia
depression/anxiety
HFpEF
GERD
H. pylori
Herpes simplex virus of clitoris
Diverticulosis
Past Surgical History: Reports None
Additional Past Surgical History:
Surgery for Spinal Surgery x2
Ectopic - unilateral oophorectomy
eye surgery - scar tissue on cornea
left eye laser surgery
fine needle aspiration of breast negative over 20yrs [place]
Cardioversion 07/01/2018
DTH Ablation 08/2018
Cardioversion 02/2021
christo for scoliosis
Cardioversion 02/14/22
Social History
Tobacco: Non-smoker
Alcohol: None
Family History
Family History: Not pertinent
Allergies / Home Medications
Allergies reflects when Allergies were last updated in [employer]
Home Medications with original date entered in [employer]
Allergy/Medication List:
Allergies
Allergy/AdvReac Type Severity Reaction Status Date / Time
erythromycin base Allergy Rash Verified 11/01/24 09:29
Voilibi-DFT-DmN Reductase Allergy elevated Verified 11/01/24 09:29
Inhibitor LFTs
Home Medications
apixaban 5 mg tablet (Eliquis) 5 mg PO BID Blood clot prevention/tx 03/22/15
metoprolol succinate 25 mg tablet,extended release 24 hr 25 mg PO DAILY Arrhythmia 03/22/15
alprazolam 0.5 mg tablet 0.5 mg PO HS Mental Health/Anxiety 03/26/18
ursodiol 300 mg capsule 300 mg PO TID Gallstones 02/14/22
ascorbic acid (vitamin C) 1,000 mg tablet 1,000 mg PO DAILY Supplement 11/01/24
calcium 315 mg (as citrate)-vitamin D3 5 mcg (200 unit) tablet 1 tab PO BID Supplement 11/01/24
cyanocobalamin (vitamin B-12) 1,000 mcg/mL injection solution 1,000 mcg IM QMONTH Supplement 11/01/24
cyanocobalamin (vitamin B-12) 2,500 mcg tablet 2,500 mcg PO DAILY Supplement 11/01/24
dofetilide 125 mcg capsule 125 mcg PO TID Heart Disease/Condition 11/01/24
estradiol 0.01% (0.1 mg/gram) vaginal cream 1 appful vaginal TUFR Hormonal Agent 11/01/24
famotidine 40 mg tablet 40 mg PO HS Gastrointestinal Issue 11/01/24
jnjwgrnouuex-qfuyggkz-jzodhm tablet 1 tab PO DAILY Supplement 11/01/24
Review of Systems
-
History Source: Patient
Constitutional: Denies Fever or Chills
EENT: Denies Sore Throat
Respiratory: Denies Cough, Hemoptysis or Trouble Breathing
Cardiac: Reports Palpitations; Denies Chest Pain, Diaphoresis or Syncope
Abdomen/GI: Denies Abdominal Pain, Nausea, Vomiting or Diarrhea
: Denies Dysuria, Frequency or Urgency
Musculoskeletal: Denies Joint Pain
Skin: Denies Itching
Neurological: Denies Dizzy, Headache, Weakness or Numbness
Endocrine: Denies Polyuria
Hematologic/Lymphatic: Denies Bleeding
Physical Exam
Vital Signs
Vital Signs
Temp Pulse Resp BP Pulse Ox
98.1 F 123 20 157/100 98
12/26/24 15:55 12/26/24 15:58 12/26/24 15:58 12/26/24 15:58 12/26/24 15:58
Physical Exam
General: Well Developed, Well Nourished, Comfortable and Conversant
HEENT: NormoCephalic, Moist mucous membranes, PERRLA, Nose Appears Normal and Ears Appear Normal
Respiratory: Clear and Non Labored Respirations; No Wheezes, Rales or Rhonchi
Cardiac: S1/S2, Irregular Rhythm and Tachycardia; No Murmur, Rub, Gallop or Peripheral Edema
GI: Soft, Non Tender, Non Distended and Normal Bowel Sounds
Musculoskeletal: No Clubbing, No Cyanosis and No Edema
Skin: Warm and IV/Catheter Site
Neuro: Awake and AO x 3
Psych: Calm and Intact Judgment/Insight
Laboratory Results
-
12/26/24 10:47
12/26/24 10:47
Laboratory Results
Total Bilirubin 1.5 mg/dl (0.2-1.3) H 12/26/24 10:47
AST 26 U/L (14-36) 12/26/24 10:47
ALT 18 U/L (0-35) 12/26/24 10:47
Alkaline Phosphatase 86 U/L (38-126) 12/26/24 10:47
Troponin I < 0.012 ng/ml 12/26/24 10:47
Data Reviewed
-
Medical Tests (Nuc Med, Echo, EKG etc): Report Reviewed by me (EKG: ATRIAL FLUTTER WITH VARIABLE A-V BLOCK NONSPECIFIC ST ABNORMALITY)
Lab Data: Labs Reviewed by me
Impression/Plan
-
IMPRESSION/PLAN:
#palpitations and shortness of breath 2/2 paroxysmal atrial fibrillation
Cardioversion x2 attempted in ED and patient converted and quickly back into atrial fibrillation
labs unremarkable
EKG: ATRIAL FLUTTER WITH VARIABLE A-V BLOCK
NONSPECIFIC ST ABNORMALITY
- Admit to IVU
- Consult Cardiology
- diltiazem gtt
- continue dofetilide and Eliquis
#hypertension
- continue metoprolol
#depression/anxiety
- continue alprazolam
#GERD
- continue famotidine
#HFpEF
- I & Os
- daily weights
#hyperlipidemia
#H. pylori
#Herpes simplex virus of clitoris
#Diverticulosis
Code status: full code
DVT prophylaxis: Eliquis
[2024-12-26] MEDS: CARDIZEM 125 IV (16:29)
[2024-12-26 17:54] LABS: Magnesium 2.0 mg/dl (1.6-2.3)
--- NOTE | 2024-12-26 20:03 | CON.CAR ---
Consultation
Consultation Request
Date/Time Consultation Requested: 12/26/2024 at 1600
Date/Time Consultation Performed: 12/26/2024 at 1800
Requesting Provider: Dr. He Henson
Performing Provider: Vaughn Weiss
Reason for Consultation: Atrial flutter
Medical History
-
Chief Complaint: Recurrent atrial flutter
History of Present Illness:
84-year-old woman with long history of atrial flutter ultimately undergoing PVI and flutter ablation in August 2018. Atrial fibrillation occurred in 2022 with subsequent A-fib recurrences treated with dofetilide, initially 250 mcg twice daily but
more recently 125 mcg 3 times daily. Her most recent episode of atrial fibrillation occurred in October but upon presentation for cardioversion she was back in sinus rhythm. However, several days ago, she noted recurrence of flutters, but was
able to maintain high levels of fitness exercising and walking with her daughter. She called our office this morning and was referred to the ER. Cardioversion was attempted x 2 but was unsuccessful and she is now admitted.
Past Medical History
Past Medical History: Arrhythmias (PAF with PVI/CTI ablation 2018, now on dofetilide, presumed vagal syncope), CHF (HFpEF), GERD, HTN, Hypercholesterolemia, Hyperthyroidism and Other (Scoliosis, B12 deficiency, peptic ulcer disease, anxiety, primary
biliary cirrhosis, GI bleeding with AVMs status post cautery, remote tobacco use)
Past Surgical History: Gynecological (Salpingo oophorectomy) and Orthopedic (Spinal instrumentation with rods)
Social History
Tobacco: Former Smoker
Alcohol: Occasional (Less than 1 or 2/week)
Drug: None
Personal:
Living: Alone
Employment: Retired
Family History
Family History: Reviewed & Not Pertinent
Allergies / Home Medications
Allergy/AdvReac Type Severity Reaction Status Date / Time
erythromycin base Allergy Rash Verified 11/01/24 09:29
Gvqhrhy-GYM-QbD Reductase Allergy elevated Verified 11/01/24 09:29
Inhibitor LFTs
�Medication �Instructions �Recorded �Confirmed �Type
apixaban 5 mg tablet (Eliquis) 5 mg PO BID Blood clot 03/22/15 12/26/24 History
prevention/tx
metoprolol succinate 25 mg 25 mg PO DAILY Arrhythmia 03/22/15 12/26/24 History
tablet,extended release 24 hr
alprazolam 0.5 mg tablet 0.5 mg PO HS Mental Health/Anxiety 03/26/18 12/26/24 History
ursodiol 300 mg capsule 300 mg PO TID Gallstones 02/14/22 12/26/24 History
ascorbic acid (vitamin C) 1,000 mg 1,000 mg PO DAILY Supplement 11/01/24 12/26/24 History
tablet
calcium 315 mg (as 1 tab PO BID Supplement 11/01/24 12/26/24 History
citrate)-vitamin D3 5 mcg (200
unit) tablet
cyanocobalamin (vitamin B-12) 1,000 mcg IM QMONTH Supplement 11/01/24 12/26/24 History
1,000 mcg/mL injection solution
cyanocobalamin (vitamin B-12) 2,500 mcg PO DAILY Supplement 11/01/24 12/26/24 History
2,500 mcg tablet
dofetilide 125 mcg capsule 125 mcg PO TID Heart 11/01/24 12/26/24 History
Disease/Condition
estradiol 0.01% (0.1 mg/gram) 1 appful vaginal TUFR Hormonal 11/01/24 12/26/24 History
vaginal cream Agent
famotidine 40 mg tablet 40 mg PO HS Gastrointestinal Issue 11/01/24 12/26/24 History
xyuazaysidpj-tblbraux-nevnde tablet 1 tab PO DAILY Supplement 11/01/24 12/26/24 History
Review of Systems
-
All other systems: Negative unless noted
Physical Exam
Vital Signs
Temp Pulse Resp BP Pulse Ox
36.7 C 78 18 103/69 98
12/26/24 19:52 12/26/24 19:15 12/26/24 19:52 12/26/24 19:11 12/26/24 19:52
Lab Results
12/26/24 10:47
12/26/24 10:47
Troponin I < 0.012 ng/ml 12/26/24 10:47
Physical Exam
General: No Apparent Distress
HEENT: Normocephalic
Respiratory: Clear
Musculoskeletal: Other (Kyphoscoliosis)
Skin: Warm and Dry
Neuro: AO x 3
Psych: Calm
Impression / Plan
-
Impression:
Recurrent atrial flutter, failed cardioversion 12/26/2024
History of PVI/flutter ablation 2018 with subsequent recurrence, on dofetilide
Hypertension
Hypercholesterolemia
History of GERD/peptic ulcer disease
History of vagal syncope and anxiety
Primary biliary cirrhosis
History of kyphoscoliosis
History of hyperthyroidism and history of GI bleeding with AVMs and cautery
Echo April 2022: EF 55-60%, normal RV, mild aortic regurgitation, mild mitral regurgitation, pulmonary artery systolic pressure is 20-25 mmHg
Plan:
She presents with recurrence atrial flutter and failed cardioversion earlier today. She had a recurrence that spontaneously terminated in October of this year. She has been maintained on dofetilide.
For now, we will continue dofetilide and reassess in the morning. Consider increasing dofetilide if QT interval permits. We may need to consider a switch to amiodarone for the short-term. Long-term rate control and anticoagulation is an option
but may be less desirable. Ultimately, if there is difficulty in maintaining sinus rhythm she would be a reasonable candidate for repeat PVI or atrial flutter ablation, presumably left atrial
We will continue to follow.
Data Reviewed
-
EKG: Tracing Personally Visualized and interpreted (Atrial flutter with variable AV block, nonspecific ST changes, QT interval okay)
Labs: Labs Reviewed by me (Hemoglobin 14.6, white count 6.9, platelets 203, potassium 5.1, BUN and creatinine are 19 and 0.9, troponin undetectable)
Old Records: Reviewed
[2024-12-26] MEDS: ELIQUIS 5 MG PO (20:27)
[2024-12-26] MEDS: TIKOSYN 125 MCG PO (22:32)
[2024-12-26] MEDS: PEPCID 40 MG PO (22:32)
[2024-12-26] MEDS: ACTIGALL 300 MG PO (22:32)
[2024-12-26] MEDS: XANAX 0.5 MG PO (23:31)
[2024-12-27] VITALS (7 sets, daily range): BP systolic 99–124; BP diastolic 61–88; BMI 21.6
--- NOTE | 2024-12-27 00:56 | PTCARENOTE ---
Received patient from ED via stretcher into room 2258 w/ daughter at bedside. Patient ambulated self and denies any dizziness. Tele applied pt Afib. IV Cardizem gtt infusing at 5ml/hr. Denies any SOB or pain. Oriented pt to room, call mondragon within
reach.
[2024-12-27 04:36] LABS: Blood Urea Nitrogen 15 mg/dl (7-17); Calcium 9.1 mg/dl (8.4-10.2); Carbon Dioxide 26 mmol/L (22-30); Chloride 104 mmol/L (98-107); Estimated Creatinine Clearance 51 ml/min; Glucose 89 mg/dl (70-99); Potassium 3.8 mmol/L (3.5-5.1); Sodium 136 mmol/L (135-145); eGFR > 60.00
[2024-12-27] MEDS: TIKOSYN 125 MCG PO (07:51)
[2024-12-27] MEDS: ELIQUIS 5 MG PO ×2 (07:52→19:55)
[2024-12-27] MEDS: TOPROL XL 25 MG PO (07:52)
[2024-12-27] MEDS: ACTIGALL 300 MG PO ×3 (07:52→23:04)
--- NOTE | 2024-12-27 10:33 | CM ---
Reviewed chart. Met with Mrs. Zayas to review discharge plans. She states prior to admission she resides alone in a one story home without any steps. She states there is a ramp if needed. She states prior to admission she was independent with
ambulation and adls. She states she does not have any DME in the home. She states she has a prescription plan and uses [facility] pharmacy. She states her daughter stays with her at night two-three times a week. Medical work-up in progress. The
discharge plan is to return home when medically stable.
--- NOTE | 2024-12-27 11:01 | W.PN.HOSP.TC ---
Today's Communication/Plan
-
See plan
Assessment / Plan
Assessment / Plan
Impression:
Recurrent atrial flutter with rapid ventricular response.
Other conditions
Essential hypertension
Dyslipidemia
History of vasovagal syncope
Primary biliary cirrhosis, compensated on ursodiol
History of hypothyroidism
History of gastrointestinal hemorrhage secondary to AVM
Plan:
Recurrent atrial flutter. Patient presents with rapid ventricular response.
She has prior history of a flutter ablation as well as PVI
Echo April 2022: EF 55-60%, normal RV, mild aortic regurgitation, mild mitral regurgitation, pulmonary artery systolic pressure is 20-25 mmHg
She has been maintained on dofetilide and metoprolol
Remains on anticoagulation with Eliquis
Unsuccessful attempt of cardioversion in ED on 12/26.
Hemodynamically stable
Initiated on IV Cardizem for rate control
Cardiology consulted for further decision on options. Contemplating increase dose of dofetilide.
Amiodarone load likely not be a best option given patient with history of primary biliary cirrhosis as well as thyroid dysfunction
Primary biliary cirrhosis
Compensated on ursodiol.
Anticipated Discharge: 24 - 48 hours
Subjective/Interval History
-
Date of Service: December 27, 2024
Objective Data
-
Labs:
Laboratory Results
12/27/24
03:45
Sodium 136
Potassium 3.8 D
Chloride 104
Carbon Dioxide 26
BUN 15
Creatinine 0.8
Glucose 89
Calcium 9.1
Vital Signs:
Vital Signs
Temp Pulse Resp BP Pulse Ox
98.2 F 74 16 119/63 97
12/27/24 06:54 12/27/24 06:54 12/27/24 06:54 12/27/24 03:38 12/27/24 06:54
I&O
12/26/24 12/27/24 12/28/24
06:59 06:59 06:59
Intake Total 780 / 780
Balance 780 / 780
Physical Exam
-
General: Well Developed and No Apparent Distress
HEENT: Normocephalic, Atraumatic and Moist Mucous Membranes
Respiratory: Clear to Auscultation
Cardiac: Regular Rhythm and S1/S2; Negative Murmur, Rub or Gallop
GI: Soft, Nontender, Nondistended and Normal Bowel Sounds; Negative Organomegaly
Rectal: Deferred by Provider
Musculoskeletal: No Clubbing, No Cyanosis and No Edema
Skin: Negative Rash
Neuro: Nonfocal/Grossly Intact
--- NOTE | 2024-12-27 11:45 | W.PN.CARDCBS ---
Today's Communication / Plan
-
Stop dofetilide
Begin amiodarone 200 mg twice daily in 48 hours
Stop IV diltiazem
Uptitrate metoprolol
Hopefully okay for discharge tomorrow, with outpatient EP follow-up and possible scheduling of PVI
Impression / Plan
-
Impression:
Recurrent atrial flutter, failed cardioversion 12/26/2024
History of PVI/flutter ablation 2018 with subsequent recurrence, on dofetilide
Hypertension
Hypercholesterolemia
History of GERD/peptic ulcer disease
History of vagal syncope and anxiety
Primary biliary cirrhosis
History of kyphoscoliosis
History of hyperthyroidism and history of GI bleeding with AVMs and cautery
Echo April 2022: EF 55-60%, normal RV, mild aortic regurgitation, mild mitral regurgitation, pulmonary artery systolic pressure is 20-25 mmHg
Plan:
She is doing reasonably well, but remains in atrial fibrillation. On IV diltiazem.
She has had 2 episodes of atrial fibrillation in the last month despite dofetilide.
We will stop dofetilide and after washout begin amiodarone with outpatient follow-up. If she fails to convert we can schedule outpatient cardioversion.
If she converts to sinus rhythm we will consider whether or not to continue amiodarone versus schedule PVI. This decision can be made at follow-up with EP.
Discussed with Dr. Brown who agrees.
Continue anticoagulation.
Hopefully okay for discharge in a.m. if rate is adequately controlled.
Progress Note - Flow Nurse
Subjective
Date of Service: December 27, 2024:
84-year-old with history of PVI and flutter ablation in 2017, on dofetilide 125 mcg 3 times daily, spontaneously reverted to sinus rhythm after developing A-fib in October but then admitted yesterday failing cardioversion x 2.
119/63, pulse 74, respiratory rate 16, afebrile, weight is 60.7 kg
Telemetry: Rate is controlled
BUN and creatinine are 15 and 0.8
Objective
Labs:
12/26/24 10:47
12/27/24 03:45
Labs
Hgb 14.6 g/dL (12.0-16.0) 12/26/24 10:47
Hct 44.4 % (37.0-47.0) 12/26/24 10:47
Plt Count 203 10^3/uL (130-400) 12/26/24 10:47
Sodium 136 mmol/L (135-145) 12/27/24 03:45
Potassium 3.8 mmol/L (3.5-5.1) D 12/27/24 03:45
BUN 15 mg/dl (7-17) 12/27/24 03:45
Creatinine 0.8 mg/dL (0.6-1.0) 12/27/24 03:45
Glucose 89 mg/dl (70-99) 12/27/24 03:45
Troponins
12/26/24
10:47
Troponin I < 0.012
Vital Signs and I&O:
Vital Signs
Temp Pulse Resp BP Pulse Ox
36.8 C 74 16 119/63 97
12/27/24 06:54 12/27/24 06:54 12/27/24 06:54 12/27/24 03:38 12/27/24 06:54
Vital Signs
Temp Pulse Resp BP Pulse Ox
36.8 C 74 16 119/63 97
12/27/24 06:54 12/27/24 06:54 12/27/24 06:54 12/27/24 03:38 12/27/24 06:54
Intake & Output
12/25/24 12/26/24 12/27/24 12/28/24
06:59 07:59 07:59 07:59
Intake Total 780 / 780
Balance 780 / 780
Physical Exam
Physical Exam
Lungs are clear irregular rate and rhythm, no obvious murmurs, abdomen benign extremities without clubbing cyanosis or edema
[2024-12-27] MEDS: LOPRESSOR 25 MG PO (13:12)
--- NOTE | 2024-12-27 14:49 | PTCARENOTE ---
Pt remains in A-Fib, HR 80-90's at rest, up to 120-130's with activity. She denies lightheadedness, dizziness and SOB. Denies pain.
[2024-12-27] MEDS: REFRESH EYE DROPS (PF) 1 DROPS OPHTH (15:59)
[2024-12-27] MEDS: TOPROL XL 50 MG PO (19:55)
[2024-12-27] MEDS: PEPCID 40 MG PO (23:04)
[2024-12-27] MEDS: XANAX 0.5 MG PO (23:12)
[2024-12-28] VITALS (7 sets, daily range): BP systolic 119–137; BP diastolic 65–89; BMI 21.8
--- NOTE | 2024-12-28 01:28 | PTCARENOTE ---
Received pt at change of shift resting in bed. Afib on tele-HR anywhere from 90's to 130's w/ activity. pt denies any CP, SOB, lightheadedness/dizziness at this time. Updated pt on plan of care and encouraged to call RN with any questions/concerns.
Call mondragon within reach.
[2024-12-28] MEDS: TOPROL XL 50 MG PO ×2 (07:32→20:43)
[2024-12-28] MEDS: REFRESH EYE DROPS (PF) 1 DROPS OPHTH ×2 (07:32→20:42)
[2024-12-28] MEDS: ELIQUIS 5 MG PO ×2 (07:32→20:42)
[2024-12-28] MEDS: ACTIGALL 300 MG PO ×3 (07:32→22:26)
[2024-12-28] MEDS: FLUSH (NSS) 1 FLUSH IV (07:33)
--- NOTE | 2024-12-28 07:38 | PTCARENOTE ---
The patient is aaox3, her vital signs are stable. Afib is noted on the monitor with HRs fluctuating between 70s to low 100s at rest and the 120s while ambulating. She is symptomatic and complains of 'feeling palpations' even with Hrs in the 70s-90s
at rest. She also complains of feeling 'sob' while ambulating to the BR. Metoprol XL given as ordered. PA notified.
--- NOTE | 2024-12-28 07:39 | W.PN.CARDCBS ---
Addendum entered and electronically signed by Matti Esquivel DO 12/28/24 09:55:
I saw and examined the patient.
The Wine Consultant's note was reviewed and I agree with the note.
Comment:
Plan:
Continue Tikosyn washout, plan for amiodarone initiation tomorrow.
Cont to monitor QTc
Cont Eliquis
Plan for outpt cardioversion if fails to convert on amiodarone.
Check pBNP and consider lasix if necessary
Original Note:
Today's Communication / Plan
-
Check proBNP
Tikosyn washout. Plan to initiate amiodarone tomorrow afternoon/evening
Follow QTc
Continue Eliquis
Impression / Plan
-
Impression:
Recurrent atrial flutter, failed cardioversion 12/26/2024
History of PVI/flutter ablation 2018 with subsequent recurrence, on dofetilide
Hypertension
Hypercholesterolemia
History of GERD/peptic ulcer disease
History of vagal syncope and anxiety
Primary biliary cirrhosis
History of kyphoscoliosis
History of hyperthyroidism and history of GI bleeding with AVMs and cautery
Echo April 2022: EF 55-60%, normal RV, mild aortic regurgitation, mild mitral regurgitation, pulmonary artery systolic pressure is 20-25 mmHg
Plan:
-Remains symptomatic with atrial fibrillation overnight, complains of palpitations and dyspnea on exertion. HRs appear reasonably controlled on review of tele
-Dofetilide stopped 12/27 with a.m. dose with plan for washout and transition to amiodarone as of 6 PM
-Continue Toprol 50 mg twice daily, uptitrate as blood pressure allows
-Continue outpatient Eliquis 5 mg twice daily
-Given continued symptoms, will check proBNP, as well as electrolytes this morning. Would consider for IV diuresis if proBNP elevated.
-Will plan to keep patient overnight and initiate Amio prior to discharge. We did discuss as patient will likely remain in A-fib at time of discharge, she can expect to have occasional palpitations and symptoms of dyspnea on exertion
-Plan for outpatient cardioversion if fails to convert, as well as EP follow-up to discuss repeat PVI, last from 2018
-She also inquired about options for ablate and pace, which we did discuss, however suspect she would be a redo PVI candidate prior to considering for AVJ and pacemaker
-Discussed with patient's daughter Scarlet Mcelroy via telephone and updated
Progress Note - Document Control Specialist
Subjective
Date of Service: December 28, 2024
c/o palpitations and MARIA
Objective
Labs:
12/26/24 10:47
12/27/24 03:45
Labs
Hgb 14.6 g/dL (12.0-16.0) 12/26/24 10:47
Hct 44.4 % (37.0-47.0) 12/26/24 10:47
Plt Count 203 10^3/uL (130-400) 12/26/24 10:47
Sodium 136 mmol/L (135-145) 12/27/24 03:45
Potassium 3.8 mmol/L (3.5-5.1) D 12/27/24 03:45
BUN 15 mg/dl (7-17) 12/27/24 03:45
Creatinine 0.8 mg/dL (0.6-1.0) 12/27/24 03:45
Glucose 89 mg/dl (70-99) 12/27/24 03:45
Troponins
12/26/24
10:47
Troponin I < 0.012
Vital Signs and I&O:
Vital Signs
Temp Pulse Resp BP Pulse Ox
97.8 F 97 18 119/65 98
12/28/24 07:13 12/28/24 07:13 12/28/24 07:13 12/28/24 07:06 12/28/24 07:13
Vital Signs
Temp Pulse Resp BP Pulse Ox
97.8 F 97 18 119/65 98
12/28/24 07:13 12/28/24 07:13 12/28/24 07:13 12/28/24 07:06 12/28/24 07:13
Intake & Output
12/25/24 12/26/24 12/27/24 12/28/24
06:59 07:59 07:59 07:59
Intake Total 780 / 780 240 / 240
Output Total 300 / 300
Balance 780 / 780 -60 / -60
Physical Exam
Physical Exam
GEN: No distress, awake, alert, oriented x3
HEENT: supple, anicteric, mmm, EOMI
LUNGS: CTA bilaterally, no wheezes/rales
CV: Irreg, S1/S2, no murmur
ABD: soft, BS+, NT/ND
EXT: No cyanosis, clubbing, edema
NEURO: Gross non-focal
SKIN: Warm, pink, dry. No rash
[2024-12-28 10:20] LABS: Blood Urea Nitrogen 17 mg/dl (7-17); Calcium 8.8 mg/dl (8.4-10.2); Carbon Dioxide 23 mmol/L (22-30); Chloride 104 mmol/L (98-107); Estimated Creatinine Clearance 51 ml/min; Glucose 168 mg/dl (70-99); Magnesium 1.9 mg/dl (1.6-2.3); Potassium 4.0 mmol/L (3.5-5.1); Sodium 136 mmol/L (135-145); eGFR > 60.00
--- NOTE | 2024-12-28 11:25 | CM ---
Reviewed chart. Met with Mrs. Zayas to review discharge plans. She states she is feeling better. Prior to admission she resides alone in a one story home without any steps. There is a ramp if needed. Prior to admission she was independent with
ambulation and adls. She does not have any DME in the home. She has a prescription plan and uses [facility] pharmacy. Her daughter stays with her at night two-three times a week. Medical work-up in progress. The discharge plan is to return home when
medically stable.
--- NOTE | 2024-12-28 14:11 | W.PN.HOSP.TC ---
Today's Communication/Plan
-
Plan is to start amiodarone load after Tikosyn washout tentatively on 12/29
Continue Eliquis
Assessment / Plan
Assessment / Plan
Impression:
Recurrent atrial flutter with rapid ventricular response.
Other conditions
Essential hypertension
Dyslipidemia
History of vasovagal syncope
Primary biliary cirrhosis, compensated on ursodiol
History of hypothyroidism
History of gastrointestinal hemorrhage secondary to AVM
Plan:
Recurrent atrial flutter. Patient presents with rapid ventricular response.
She has prior history of a flutter ablation as well as PVI
Echo April 2022: EF 55-60%, normal RV, mild aortic regurgitation, mild mitral regurgitation, pulmonary artery systolic pressure is 20-25 mmHg
She has been maintained on dofetilide and metoprolol
Remains on anticoagulation with Eliquis
Unsuccessful attempt of cardioversion in ED on 12/26.
Hemodynamically stable
Off Cardizem drip
Plan is for amiodarone load starting 12/29 after Tikosyn washout
Primary biliary cirrhosis
Compensated on ursodiol.
Anticipated Discharge: 24 - 48 hours
Subjective/Interval History
-
Date of Service: December 28, 2024
Objective Data
-
Labs:
Laboratory Results
12/28/24
09:37
Sodium 136
Potassium 4.0
Chloride 104
Carbon Dioxide 23
BUN 17
Creatinine 0.8
Glucose 168 H
Calcium 8.8
Vital Signs:
Vital Signs
Temp Pulse Resp BP Pulse Ox
98.5 F 91 16 127/72 98
12/28/24 11:30 12/28/24 11:22 12/28/24 11:30 12/28/24 11:22 12/28/24 11:30
I&O
12/27/24 12/28/24 12/29/24
06:59 06:59 06:59
Intake Total 780 / 780 240 / 240
Output Total 300 / 300
Balance 780 / 780 240 / 240 -300 / -300
Physical Exam
-
General: Well Developed and No Apparent Distress
HEENT: Normocephalic, Atraumatic and Moist Mucous Membranes
Respiratory: Clear to Auscultation
Cardiac: Regular Rhythm and S1/S2; Negative Murmur, Rub or Gallop
GI: Soft, Nontender, Nondistended and Normal Bowel Sounds; Negative Organomegaly
Rectal: Deferred by Provider
Musculoskeletal: No Clubbing, No Cyanosis and No Edema
Skin: Negative Rash
Neuro: Nonfocal/Grossly Intact
[2024-12-28] MEDS: PEPCID 20 MG PO (22:26)
[2024-12-28] MEDS: XANAX 0.5 MG PO (23:25)
--- NOTE | 2024-12-28 23:35 | PTCARENOTE ---
Received pt at change of shift resting in bed, daughter at bedside overnight. Afib on tele, HR 90s-110's with ambulation. pt denies having any palpitations at this time. pt also denies any CP, SOB, lightheadedness/dizziness at this time. Updated pt
on plan of care and encouraged to call RN with any questions/concerns. Call mondragon within reach.
[2024-12-29] VITALS (7 sets, daily range): BP systolic 109–140; BP diastolic 61–85; BMI 21.6
[2024-12-29] MEDS: ACTIGALL 300 MG PO ×3 (09:06→22:44)
[2024-12-29] MEDS: ELIQUIS 5 MG PO ×2 (09:06→20:16)
[2024-12-29] MEDS: TOPROL XL 50 MG PO ×2 (09:07→20:16)
[2024-12-29] MEDS: REFRESH EYE DROPS (PF) 1 DROPS OPHTH ×2 (09:07→20:21)
--- NOTE | 2024-12-29 09:59 | CM ---
Reviewed chart. Met with Mrs. Zayas to review discharge plans. She states she is feeling okay and maybe able to go home soon. Prior to admission she resides alone in a one story home without any steps. There is a ramp if needed. Prior to
admission she was independent with ambulation and adls. She does not have any DME in the home. She has a prescription plan and uses [facility] pharmacy. Her daughter stays with her at night two-three times a week. Medical work-up in progress. The
discharge plan is to return home when medically stable.
--- NOTE | 2024-12-29 11:08 | W.PN.CARDCBS ---
Addendum entered and electronically signed by Matti Esquivel DO 12/29/24 17:38:
I saw and examined the patient.
The General Technician's note was reviewed and I agree with the note.
Comment:
General: No acute distress, AAOX3
Neck: Negative JVD
Heart: Irregular rate, Negative S3 positive S1/S2, Negative S4, No murmur
Lungs: CTA b/l, negative wheezes/rales/rhonchi
Abd: Positive BS, NT/ND, neg rebound/rigidity/guarding
Ext: Negative cyanosis/clubbing/edema
Neuro: nonfocal
Plan:
Start amiodarone 200 mg twice a day this p.m.
Completed Tikosyn washout
Monitor telemetry, QTc
Check EKG in the a.m.
Continue Toprol and Eliquis anticoagulation
Outpatient electrophysiology follow-up
Hopeful discharge next 24 hours.
Original Note:
Today's Communication / Plan
-
Plan to start Amio 200 mg twice daily tonight
check EKG in a.m. to reeval QTc
Continue Toprol, Eliquis
Outpatient EP follow-up
Impression / Plan
-
Impression:
Recurrent atrial flutter, failed cardioversion 12/26/2024
History of PVI/flutter ablation 2018 with subsequent recurrence, on dofetilide
Hypertension
Hypercholesterolemia
History of GERD/peptic ulcer disease
History of vagal syncope and anxiety
Primary biliary cirrhosis
History of kyphoscoliosis
History of hyperthyroidism and history of GI bleeding with AVMs and cautery
Echo April 2022: EF 55-60%, normal RV, mild aortic regurgitation, mild mitral regurgitation, pulmonary artery systolic pressure is 20-25 mmHg
Plan:
- She continues with some occasional palpitations and dyspnea with exertion, however overall feels relatively well. Heart rates adequately controlled on review of telemetry in A-fib overnight
- Dofetilide stopped 12/27 with a.m. dose with plan for washout and transition to amiodarone as of 11 6 PM. Will plan to place on 200 mg twice daily to start tonight
- Continue Toprol 50 mg twice daily
- Continue Eliquis 5 mg twice daily
- proBNP was 980. Lungs sound clear. Does not appear to be in acute heart failure
-We did discuss as patient will likely remain in A-fib at time of discharge, she can expect to have occasional palpitations and symptoms of dyspnea on exertion
-Plan for outpatient cardioversion if fails to convert, as well as EP follow-up to discuss repeat PVI, last from 2018
Progress Note - Wwe Wrestler
Subjective
Date of Service: December 29, 2024
Reports occasional palpitations and dyspnea on exertion, however overall feeling well
Objective
Labs:
12/26/24 10:47
12/28/24 09:37
Labs
Hgb 14.6 g/dL (12.0-16.0) 12/26/24 10:47
Hct 44.4 % (37.0-47.0) 12/26/24 10:47
Plt Count 203 10^3/uL (130-400) 12/26/24 10:47
Sodium 136 mmol/L (135-145) 12/28/24 09:37
Potassium 4.0 mmol/L (3.5-5.1) 12/28/24 09:37
BUN 17 mg/dl (7-17) 12/28/24 09:37
Creatinine 0.8 mg/dL (0.6-1.0) 12/28/24 09:37
Glucose 168 mg/dl (70-99) H 12/28/24 09:37
Troponins
12/26/24
10:47
Troponin I < 0.012
Vital Signs and I&O:
Vital Signs
Temp Pulse Resp BP Pulse Ox
97.9 F 67 17 125/85 93
12/29/24 11:02 12/29/24 11:02 12/29/24 11:02 12/29/24 04:41 12/29/24 11:02
Vital Signs
Temp Pulse Resp BP Pulse Ox
97.9 F 67 17 125/85 93
12/29/24 11:02 12/29/24 11:02 12/29/24 11:02 12/29/24 04:41 12/29/24 11:02
Intake & Output
12/27/24 12/28/24 12/29/24 12/30/24
07:59 07:59 07:59 07:59
Intake Total 780 / 780 240 / 240 360 / 360
Output Total 300 / 300 200 / 200 500 / 500
Balance 780 / 780 -60 / -60 160 / 160 -500 / -500
Physical Exam
Physical Exam
GEN: No distress, awake, alert, oriented x3
HEENT: supple, anicteric, mmm, EOMI
LUNGS: CTA bilaterally, no wheezes/rales
CV: Irreg, S1/S2, no murmur
ABD: soft, BS+, NT/ND
EXT: No cyanosis, clubbing, edema
NEURO: Gross non-focal
SKIN: Warm, pink, dry. no rash
--- NOTE | 2024-12-29 16:17 | W.PN.HOSP.TC ---
Today's Communication/Plan
-
Amiodarone load tonight
Assessment / Plan
Assessment / Plan
Impression:
Recurrent atrial flutter with rapid ventricular response.
Other conditions
Essential hypertension
Dyslipidemia
History of vasovagal syncope
Primary biliary cirrhosis, compensated on ursodiol
History of hypothyroidism
History of gastrointestinal hemorrhage secondary to AVM
Plan:
Recurrent atrial flutter. Patient presents with rapid ventricular response.
She has prior history of a flutter ablation as well as PVI
Echo April 2022: EF 55-60%, normal RV, mild aortic regurgitation, mild mitral regurgitation, pulmonary artery systolic pressure is 20-25 mmHg
She has been maintained on dofetilide and metoprolol
Remains on anticoagulation with Eliquis
Unsuccessful attempt of cardioversion in ED on 12/26.
Hemodynamically stable
Off Cardizem drip
Plan is for amiodarone load starting 12/29 after Tikosyn washout
Primary biliary cirrhosis
Compensated on ursodiol.
Anticipated Discharge: 24 - 48 hours
Subjective/Interval History
-
Date of Service: December 29, 2024
Objective Data
-
Vital Signs:
Vital Signs
Temp Pulse Resp BP Pulse Ox
97.7 F 87 16 123/73 98
12/29/24 15:27 12/29/24 15:27 12/29/24 15:27 12/29/24 15:27 12/29/24 15:27
I&O
12/28/24 12/29/24 12/30/24
06:59 06:59 06:59
Intake Total 240 / 240 360 / 360 1000 / 1000
Output Total 500 / 500 1300 / 1300
Balance 240 / 240 -140 / -140 -300 / -300
Physical Exam
-
General: Well Developed and No Apparent Distress
HEENT: Normocephalic, Atraumatic and Moist Mucous Membranes
Respiratory: Clear to Auscultation
Cardiac: Regular Rhythm and S1/S2; Negative Murmur, Rub or Gallop
GI: Soft, Nontender, Nondistended and Normal Bowel Sounds; Negative Organomegaly
Rectal: Deferred by Provider
Musculoskeletal: No Clubbing, No Cyanosis and No Edema
Skin: Negative Rash
Neuro: Nonfocal/Grossly Intact
[2024-12-29] MEDS: PACERONE 200 MG PO (20:22)
[2024-12-29] MEDS: PEPCID 20 MG PO (22:44)
[2024-12-29] MEDS: XANAX 0.5 MG PO (23:30)
--- NOTE | 2024-12-29 23:54 | PTCARENOTE ---
Received pt at change of shift resting in bed, daughter at bedside. afib on tele, HR 80's-100's. pt denies any CP or SOB at this time. Encouraged pt to use hat in toilet to measure output, pt verbalizes understanding. Updated pt on plan of care.
Encouraged pt to call RN w/ any questions/concerns. Call mondragon within reach.
[2024-12-30 04:42] VITALS: BP 126/80
[2024-12-30 04:44] VITALS: BMI 21.8
[2024-12-30 08:03] VITALS: BP 114/68
--- NOTE | 2024-12-30 08:26 | W.PN.CARDCBS ---
Addendum entered and electronically signed by Harman Hart MD 12/30/24 11:55:
I saw and examined the patient.
The Personnel Adviser's note was reviewed and I agree with the note.
Comment: Briefly, 84-year-old woman past medical history of persistent atrial fibrillation on Tikosyn and Eliquis who presented with atrial fibrillation with rapid ventricular response
Direct-current cardioversion was attempted 12/26/2024 but she did not maintain sinus rhythm following this
Following Tikosyn washout she was started on amiodarone
Remains in atrial fibrillation and heart rates are well-controlled. Does not seem to be symptomatic at this time.
Would plan to discharge on amiodarone 200 mg twice daily and metoprolol 50 mg twice daily
Continue Eliquis for risk reduction of cardioembolic stroke
Will arrange for outpatient follow-up. If she remains in atrial fibrillation can discuss scheduling cardioversion +/- EP study and repeat ablation.
Stable for discharge from my perspective
Original Note:
Today's Communication / Plan
-
Continue amiodarone 200 mg twice daily for 4 weeks then decrease to 200 mg daily
Continue Toprol, Eliquis
Outpatient follow-up with EP
Okay for discharge to home today
Impression / Plan
-
Impression:
Recurrent atrial flutter, failed cardioversion 12/26/2024
History of PVI/flutter ablation 2019 with subsequent recurrence, on dofetilide
Hypertension
Hypercholesterolemia
History of GERD/peptic ulcer disease
History of vagal syncope and anxiety
Primary biliary cirrhosis
History of kyphoscoliosis
History of hyperthyroidism and history of GI bleeding with AVMs and cautery
Echo April 2022: EF 55-60%, normal RV, mild aortic regurgitation, mild mitral regurgitation, pulmonary artery systolic pressure is 20-25 mmHg
Plan:
-She reports feeling little jittery this morning, however states this could be secondary to be a little anxious about going home
- Remains in rate controlled atrial fibrillation on review of telemetry overnight. Was started on amiodarone 200 mg twice daily 12/29 after dofetilide washout
- Review of EKG this morning with stable QTc
- Continue Toprol 50 mg twice daily
- Continue Eliquis 5 mg twice daily
-Plan for outpatient cardioversion if fails to convert, as well as EP follow-up to discuss repeat PVI, last from 2018
-Okay for discharge to home today
Progress Note - Family Law Attorney
Subjective
Date of Service: December 30, 2024
Reports feeling a little jittery. Otherwise feels well. No chest pain or shortness of breath
Objective
Labs:
12/26/24 10:47
12/28/24 09:37
Labs
Hgb 14.6 g/dL (12.0-16.0) 12/26/24 10:47
Hct 44.4 % (37.0-47.0) 12/26/24 10:47
Plt Count 203 10^3/uL (130-400) 12/26/24 10:47
Sodium 136 mmol/L (135-145) 12/28/24 09:37
Potassium 4.0 mmol/L (3.5-5.1) 12/28/24 09:37
BUN 17 mg/dl (7-17) 12/28/24 09:37
Creatinine 0.8 mg/dL (0.6-1.0) 12/28/24 09:37
Glucose 168 mg/dl (70-99) H 12/28/24 09:37
Vital Signs and I&O:
Vital Signs
Temp Pulse Resp BP Pulse Ox
98.2 F 74 20 126/80 94
12/30/24 08:05 12/30/24 06:00 12/30/24 08:05 12/30/24 04:42 12/30/24 08:05
Vital Signs
Temp Pulse Resp BP Pulse Ox
98.2 F 74 20 126/80 94
12/30/24 08:05 12/30/24 06:00 12/30/24 08:05 12/30/24 04:42 12/30/24 08:05
Intake & Output
12/28/24 12/29/24 12/30/24 12/31/24
07:59 07:59 07:59 07:59
Intake Total 240 / 240 360 / 360 1480 / 1480
Output Total 300 / 300 200 / 200 2750 / 2750
Balance -60 / -60 160 / 160 -1270 / -1270
Physical Exam
Physical Exam
GEN: No distress, awake, alert, oriented x3
HEENT: supple, anicteric, mmm, EOMI
LUNGS: CTA bilaterally, no wheezes/rales
CV: Irreg, S1/S2, no murmur
ABD: soft, BS+, NT/ND
EXT: No cyanosis, clubbing, edema
NEURO: Gross non-focal
SKIN: Warm, pink, dry. no rash
--- NOTE | 2024-12-30 09:13 | CM ---
Reviewed chart. Met with Mrs. Zayas to review discharge plans. She states she is feeling better and may go home soon. She states she has been ambulating in the hallway. Prior to admission she resides alone in a one story home without any steps.
There is a ramp if needed. Prior to admission she was independent with ambulation and adls. She does not have any DME in the home. She has a prescription plan and uses [facility] pharmacy. Her daughter stays with her at night two-three times a week.
Medical work-up in progress. The discharge plan is to return home when medically stable.
[2024-12-30] MEDS: ACTIGALL 300 MG PO (09:56)
[2024-12-30] MEDS: ELIQUIS 5 MG PO (09:56)
[2024-12-30] MEDS: PACERONE 200 MG PO (09:56)
[2024-12-30] MEDS: TOPROL XL 50 MG PO (09:57)
[2024-12-30] MEDS: REFRESH EYE DROPS (PF) 1 DROPS OPHTH (09:57)
--- NOTE | 2024-12-30 10:20 | W.DS.TRANS ---
DC Summary - Dough Raiser
-
Discharge Instructions:
Sleep Apnea Risk Low
Discharge Diagnosis/Procedures Atrial fibrillation with rapid ventricular
response
Diet Regular
Blood Work TSH and CMP in 4 weeks
Instructions:
Stand-Alone Forms:
Changes to Home Medications: Yes
Discharge Medications:
DC Medications w/original date entered in [employer]
apixaban 5 mg tablet (Eliquis) 5 mg PO BID Blood clot prevention/tx 03/22/15
metoprolol succinate 25 mg tablet,extended release 24 hr 25 mg PO DAILY Arrhythmia 03/22/15
alprazolam 0.5 mg tablet 0.5 mg PO HS Mental Health/Anxiety 03/26/18
ursodiol 300 mg capsule 300 mg PO TID Gallstones 02/14/22
ascorbic acid (vitamin C) 1,000 mg tablet 1,000 mg PO DAILY Supplement 11/01/24
calcium 315 mg (as citrate)-vitamin D3 5 mcg (200 unit) tablet 1 tab PO BID Supplement 11/01/24
cyanocobalamin (vitamin B-12) 1,000 mcg/mL injection solution 1,000 mcg IM QMONTH Supplement 11/01/24
cyanocobalamin (vitamin B-12) 2,500 mcg tablet 2,500 mcg PO DAILY Supplement 11/01/24
estradiol 0.01% (0.1 mg/gram) vaginal cream 1 appful vaginal TUFR Hormonal Agent 11/01/24
famotidine 40 mg tablet 40 mg PO HS Gastrointestinal Issue 11/01/24
yskowsjmnjxu-xgxmwlhy-mytkhe tablet 1 tab PO DAILY Supplement 11/01/24
carboxymethylcellulose sodium 0.5 % eye drops in a dropperette (Refresh Plus) 1 drp ophthalmic (eye) BID 12/27/24
amiodarone 200 mg tablet (Pacerone) 200 mg PO BID #120 tabs 12/30/24
Home Medication Changes
Tikosyn stoped, Amiodarone started
Pending Results: No
--- NOTE | 2024-12-30 10:41 | PTCARENOTE ---
pt afib on the monitor, hr in the 70s, vss. pt offers no complaints at this time. pt ambulating in room and tolerating well. pt educated on plan of care and pt verbalized understanding. call mondragon within reach.
[2024-12-30 12:51] VITALS: BP 119/72
--- NOTE | 2024-12-30 13:20 | PTCARENOTE ---
iv and tele removed. pt educated on d/c and pt verbalized understanding. pt left via wheelchair with staff member.
== END 2024-12-30 13:25 | disposition home or self-care (01) | DRG 309 ==
LOC: IVU 18:20
PROVIDERS: Nurse Practitioner Family; Physician Assistant; ADMITTING PHYSICIAN Hospitalist; ATTENDING PHYSICIAN Internal Medicine; CONSULT PHYSICIAN Internal Medicine Cardiovascular Disease; EMERGENCY PHYSICIAN Emergency Medicine; FAMILY PHYSICIAN Nurse Practitioner Adult Health
DX: I48.0 Paroxysmal atrial fibrillation (principal); I50.32 Chronic diastolic (congestive) heart failure; I48.92 Unspecified atrial flutter; F32.A Depression, unspecified; F41.9 Anxiety disorder, unspecified; I11.0 Hypertensive heart disease with heart failure; K21.9 Gastro-esophageal reflux disease without esophagitis; K57.30 Diverticulosis of large intestine without perforation or abscess without bleeding; K74.3 Primary biliary cirrhosis; E78.00 Pure hypercholesterolemia, unspecified; Z79.01 Long term (current) use of anticoagulants; Z87.891 Personal history of nicotine dependence; Z79.899 Other long term (current) drug therapy
CPT/HCPCS: 80048; 80053; 83735; 83880; 84100; 84484; 85025; 92960; 93005; 93306; 96374; 96375; 99152; 99291

== ENCOUNTER 2025-01-09 13:18 | Inpatient (IN) | payer OTHER, SELFPAY ==
[2025-01-09] VITALS (10 sets, daily range): BP systolic 102–135; BP diastolic 61–91; BMI 22.5; BMI 21.4
--- NOTE | 2025-01-09 10:20 | ED.GENMED ---
History of Present Illness
General
Chief Complaint: Breathing Problem
Time Seen by Provider: 01/09/25 10:08
Nursing documentation reviewed up to this point in time: agreed with
History of Present Illness
History of Present Illness:
84-year-old female presents to the ER for evaluation of significant shortness of breath with exertion along with orthopnea for the past 2 nights. Patient states that she also is experiencing paroxysmal nocturnal dyspnea. She was recently
hospitalized for A-fib with RVR and was discharged home on amiodarone which she reports she has been taking regularly. She states that she did have an outpatient office visit since her discharge on the and she was in normal sinus rhythm at
that time. Patient states she has been eating and drinking without any difficulty. She denies peripheral edema. She reports decreasing urine output. She denies chest pain. She is typically seen by Dr. Leslie from cardiology. She has been
taking her Eliquis as prescribed.
Past History
Past History
ED Past Medical History: Arrthythmia (Atrial fibrillation), HTN and Other (mild/moderate Mitral regurgitation)
ED Past Surgical History: Gynecological (Oophorectomy due to tubal )
Social History
Tobacco: Former smoker
Alcohol: Occasional
Drug: None
Personal:
Living: with family
Review of Systems
Review of Systems
Allergies reviewed?: Yes
Phy Exam
Physical Exam
Physical Exam:
Patient is awake, alert, appears fatigued but in no acute distress, sallow complexion, head is NCAT, PERRL, EOMI mucous membranes moist, conjunctiva pink, heart irregularly irregular rate and rhythm without murmurs or ectopy, lungs are clear to
auscultation without wheezes rales or rhonchi, no JVD, abdomen is soft and nontender on palpation, extremities without edema, GCS is 15
Scores
Heart Failure Risk
Heart Failure Risk Score: Yes
History of Stroke or TIA: No
History of intubation for respiratory distress: No
Heart rate on ED arrival >/= 110: Yes
SaO2 <90% on arrival on room air: No
HR >/=110 during 3min walk test (or too ill to perform test): Yes
ECG has acute ischemic changes: No
Urea >/=12mmol/L (BUN 33.6mg/dL): No
Serum CO2>/=35mmol/L: No
Troponin I or T elevated to GA Level (0.4mg/dL): No
NT-proBNP >/=5,000ng/L (5,000pg/ml): No
HF Risk Score: 2
Admission Status: MEDIUM RISK 9.2% Consider observation or discharge to home with homecare & f/u visit to PCP/[facility], or SNF for treatment
Course
Orders/Labs/Results
Orders:
Orders
01/09/25 09:40
Electrocardiogram (*1) Urgent
Reason for Study: Atrial Fibrillation
EKG- Treatment ONCE
01/09/25 10:20
Cardiac Monitoring- Treatment ONCE
CR Chest - 2 Views Urgent
Comment:
Reason For Exam: dyspnea
01/09/25 10:23
Complete Blood Count/With Diff Urgent
Comprehensive Metabolic Panel Urgent
Magnesium Stat
NT-proBNP Urgent
PTT Urgent
Prothrombin Time Urgent
TSH Urgent
Troponin I Urgent
01/09/25 10:26
COVID-19 Antigen Urgent
Source: Nasal Swab
01/09/25 12:32
Metoprolol [Lopressor] 2.5 mg IV NOW STA
01/09/25 12:34
Furosemide [Lasix] 20 mg IV NOW STA
01/09/25 12:54
Admit/Transfer Patient As Directed
Co-Sign Provider:
Level of Care: Inpatient admission
Assign to:: Telemetry
Physician / Group: nunu
Diagnosis: atrial fib
Reason for Telemetry: Arrhythmia
Date to Stop Telemetry: 01/12/25
Time to Stop Telemetry: 11:00
Reason for Hospitalization: atrial fib
Expected length of stay greater than two midnights?: Yes
ELOS- Estimated Length of Stay in days: 3
I certify the patient meets the requirements for IP care: Yes
01/09/25 12:55
PRN Pain Medication Management As Directed
May give lesser potent ordered pain med per pt: Yes
preference::
Protocol:: Medication orders for pain may be administered in a
manner that supports deferring to patient preference
when the pt is:
- Requesting an ordered lesser potent pain medication.
Least to most potent pain medications are defined
as: acetaminophen < NSAID < tramadol < opioids
(morphine, oxycodone, hydromorphone).
- Requesting a lesser dose of the same medication IF
ORDERED.
- Requesting a less intrusive route of administration
if both routes are prescribed by the provider (PO <
IV).
01/09/25 12:56
Code Status As Directed
Resuscitation Status: Full Code
01/09/25 13:11
CARDIOLOGY CONSULT Routine
Consulting Provider: Jose Ramon Carrion
Was physician already notified: Yes
01/12/25 11:00
DC Protocol for Telemetry ONCE
Abnormal Lab Results
01/09/25
10:23
WBC 11.4 H 10^3/uL
(4.8-10.8)
RBC 3.94 L 10^6/uL
(4.20-5.40)
MCH 32.7 H pg
(27.0-31.0)
MPV 11.5 H fL
(7.4-10.4)
Abs Immat Gran (auto) 0.1 H 10^3/uL
(0-0.05)
Absolute Neuts (auto) 10.1 H 10^3/uL
(1.4-6.5)
Absolute Lymphs (auto) 0.6 L 10^3/uL
(1.2-3.4)
Absolute Monos (auto) 0.7 H 10^3/uL
(0.1-0.6)
Immature Gran % 0.6 H %
(0-0.5)
Neutrophils % 87.9 H %
(42.2-75.2)
Lymphocytes % 5.3 L %
(20.5-51.1)
PT 20.7 H Sec
(11.4-14.6)
APTT 41.9 H Sec
(23.4-35.0)
Glucose 112 H mg/dl
(70-99)
Total Bilirubin 2.7 H mg/dl
(0.2-1.3)
AST 45 H U/L
(14-36)
ALT 70 H U/L
(0-35)
01/09/25 10:23
01/09/25 10:23
Mild elevation with blood count, nonspecific. Hemoglobin within normal limits. Electrolytes within normal limits. Mild elevation in LFTs. BNP elevated compared to prior value with mild increase in troponin also
Vital Signs
Initial and Last Documented VS:
Initial Vital Signs
Temp Pulse Resp BP Pulse Ox
98.0 F 106 16 125/81 98
01/09/25 09:37 01/09/25 09:37 01/09/25 09:37 01/09/25 09:37 01/09/25 09:37
Last Documented Vital Signs
Temp Pulse Resp BP Pulse Ox
98.0 F 89 20 117/69 93
01/09/25 09:37 01/09/25 14:09 01/09/25 14:09 01/09/25 14:09 11/17/25 12:45
MDM/Problems Addressed
Differential Diagnosis Includes:
Differential diagnosis to consider but not limited to decompensated congestive heart failure, uncontrolled atrial fibrillation, acute kidney injury, electrolyte dyscrasia along with other etiologies considered
Chronic conditions affecting care:
A-fib, GERD, hypertension
*Pulse Oximetry
SaO2: 93
Oxygen Mode of Delivery: Room air
Patient hypoxic: no
*EKG
Interpreted by ED Provider?: Yes (I independently viewed and interpreted twelve-lead EKG showing A-fib with RVR, rate 109, normal axis, no ST elevations, nonspecific abnormal EKG without evidence for acute ischemia, similar to prior from 12/30/2024)
*Warehouse Sorter Interpretation
Rate: other (I independently viewed and interpreted rhythm strip showing A-fib with RVR)
*Critical Care Note
Total Time (30-74mins, 75-104mins- exclusive of procedures): Not Applicable
Data Reviewed
Review of Other/Old Records Reveals: Discharge Summary (I reviewed discharge summary from Dr. Wang dated 12/30/2024-patient had been admitted for treatment of A-fib with RVR. She also has a history of primary biliary cirrhosis, vasovagal
syncope, dyslipidemia, hypertension, hypothyroidism and prior GI bleeding.)
Update Note
Update Note:
Patient resting with stable appearance. Given elevation in BNP will give small dose of Lasix. Will also give small dose of metoprolol for improved rate control. Will discuss with hospitalist for admission given symptoms of paroxysmal nocturnal
dyspnea and orthopnea, new for patient
Full patient presentation reviewed with the hospitalist team who accept patient for admission
ED Attending Note
-
Portions of this chart may have been created with voice recognition software.� Occasional wrong word or��sound alike� substitutions may have occurred due to the inherent limitations of voice recognition software.
Discharge Plan
Departure
Patient Disposition: Admit
Date of Disposition: 01/09/25
Time of Disposition: 13:08
Presentation/result/management discussed w/ accepting MD/DO: Hospitalist
Discharge Problem:
Atrial fibrillation with rapid ventricular response, CHF (congestive heart failure)
Interventions
Interventions:
*Risk Screen - Suicide Last Done: 01/09/25 09:37
*General Assessment Last Done: 01/09/25 09:37
*Neglect/Abuse Screening Last Done: 01/09/25 10:05
*ED- Fall Risk Assessment Last Done: 01/09/25 10:07
*ED COVID-19 Vaccine History Last Done: 01/09/25 10:07
*ED Influenza Vaccine History Last Done: 01/09/25 10:07
ED- Cardiac Assessment Last Done: 01/09/25 10:20
ED- Pulmonary Assessment Last Done: 01/09/25 10:20
[2025-01-09 10:43] LABS: Hematocrit 38.3 % (37.0-47.0); Hemoglobin 12.9 g/dL (12.0-16.0); Mean Corp Hgb Conc. 33.7 g/dL (33.0-37.0); Mean Corpuscular Volume 97.2 fL (81.0-99.0); Nucleated Red Blood Cells % 0 %; Platelet Count 147 10^3/uL (130-400); Red Cell Dist. Width 13.0 % (11.5-14.5)
[2025-01-09 10:55] LABS: APTT 41.9 Sec (23.4-35.0); INR 1.76; PT 20.7 Sec (11.4-14.6)
[2025-01-09 11:01] LABS: Magnesium 1.7 mg/dl (1.6-2.3)
[2025-01-09 11:03] LABS: COVID-19 Antigen Negative (Negative)
[2025-01-09 11:04] LABS: ALT (SGPT) 70 U/L (0-35); AST (SGOT) 45 U/L (14-36); Albumin 3.8 g/dl (3.5-5.0); Alkaline Phosphatase 76 U/L (38-126); Blood Urea Nitrogen 15 mg/dl (7-17); Calcium 8.4 mg/dl (8.4-10.2); Carbon Dioxide 27 mmol/L (22-30); Chloride 103 mmol/L (98-107); Estimated Creatinine Clearance 58 ml/min; Glucose 112 mg/dl (70-99); Potassium 4.0 mmol/L (3.5-5.1); Sodium 135 mmol/L (135-145); Total Protein 6.6 g/dl (6.3-8.2); eGFR > 60.00
[2025-01-09 11:13] LABS: Troponin I 0.021 ng/ml
[2025-01-09 11:32] LABS: TSH 1.42 uIU/ml (0.47-4.68)
--- NOTE | 2025-01-09 12:34 | HPS.HSE ---
Addendum entered and electronically signed by Liban Mariscal MD 01/09/25 14:09:
This is an addendum to the H&P written by Evelia Gill on 01/09/2025. �Patient seen and examined independently with REFERENCE DATA EXPERT.
84-year-old female past medical history of paroxysmal atrial fibrillation status post cardioversion x 4, pulmonary vein isolation on Eliquis, hypertension, vasovagal syncope, hypercholesteremia, PACs/PVCs, HFpEF, moderate mitral regurgitation, GERD,
peptic ulcer disease, globus pharyngeus, colon polyps, diverticulosis, primary biliary cirrhosis, H. pylori, lumbar degenerative disease, scoliosis, hyperthyroidism, pelvic for dysfunction, iron deficiency anemia secondary to small bowel AVMs status
post enteroscopy cautery, dry eyes, anxiety, herpes simplex virus of clitoris, B12 deficiency, hypothyroidism, presenting with shortness of breath with exertion and orthopnea for the past 2 days. �No edema. �She has decreased urine output. �No chest
pain.
Patient was recently admitted for atrial fibrillation with RVR. �She was weaned off Tikosyn and started on amiodarone. �She was in sinus rhythm on discharge.
Vital signs show heart rate up to 111. �EKG shows atrial fibrillation.
Labs show leukocytosis of 11.4. �Cardiac BNP 1500 from 946. �Troponin 0.021. �Mild transaminitis.
Chest x-ray shows clear lungs.
Patient with recurrent atrial fibrillation minor component of acute CHF exacerbation.
Patient given 20 IV Lasix. �Patient given 2.5 mg of Lopressor. �Cardiology consulted.
Original Note:
Family Physician
-
Family Physician: Marek Hartley
Chief Complaint
-
sob
History of Present Illness
84-year-old female manage medical history of A-fib, hypertension, mild to moderate mitral regurgitation presents to the ER for evaluation of significant shortness of breath with exertion along with orthopnea for the past 2 nights. Patient states
that she also is experiencing paroxysmal nocturnal dyspnea. patient stated weight gain 2 lbs from Thursday to Thursday. denied LE edema denied chest pain. denied fever, chills, cough, congestion. denied MOORE, dizzy or syncope.denied abdominal
pain,n,v,d. denied dysuria or hematuria.
Patient received a dose of metoprolol, Lasix in ER. Admitting for further management
Medical History
Past Medical History
Past Medical History: Reports Other
Additional Past Medical History:
Paroxysmal A-fib, hyperlipidemia, insomnia, hypertension, peptic ulcer disease, iron deficiency anemia, a flutter, bilateral cirrhosis, hypertension, CHF, GERD, H. pylori,, scoliosis
Past Surgical History: Reports Other
Additional Past Surgical History:
Scoliosis christo placement, salpingectomy, oophorectomy, spinal surgery, eye surgery, laser surgery, cardioversion,
Social History
Tobacco: Non-smoker
Alcohol: None
Drug: None
Family History
Family History: Not pertinent
Allergies / Home Medications
Allergies reflects when Allergies were last updated in [facility].
Home Medications with original date entered in [facility]
Allergy/Medication List:
Allergies
Allergy/AdvReac Type Severity Reaction Status Date / Time
erythromycin base Allergy Rash Verified 01/09/25 09:39
Ozyshmx-CAO-XpF Reductase Allergy elevated Verified 01/09/25 09:39
Inhibitor LFTs
Home Medications
apixaban 5 mg tablet (Eliquis) 5 mg PO BID Blood clot prevention/tx 03/22/15
alprazolam 0.5 mg tablet 0.5 mg PO HS Mental Health/Anxiety 03/26/18
ursodiol 300 mg capsule 300 mg PO TID Gallstones 02/14/22
ascorbic acid (vitamin C) 1,000 mg tablet 1,000 mg PO DAILY Supplement 11/01/24
calcium 315 mg (as citrate)-vitamin D3 5 mcg (200 unit) tablet 1 tab PO BID Supplement 11/01/24
cyanocobalamin (vitamin B-12) 1,000 mcg/mL injection solution 1,000 mcg IM QMONTH Supplement 11/01/24
cyanocobalamin (vitamin B-12) 2,500 mcg tablet 2,500 mcg PO DAILY Supplement 11/01/24
estradiol 0.01% (0.1 mg/gram) vaginal cream 1 appful vaginal TUFR Hormonal Agent 11/01/24
famotidine 40 mg tablet 40 mg PO HS Gastrointestinal Issue 11/01/24
zhwpfagorggt-bxifuedo-eintee tablet 1 tab PO DAILY Supplement 11/01/24
carboxymethylcellulose sodium 0.5 % eye drops in a dropperette (Refresh Plus) 1 drp ophthalmic (eye) BID 12/27/24
amiodarone 200 mg tablet (Pacerone) 200 mg PO BID #120 tabs 12/30/24
metoprolol succinate 50 mg tablet,extended release 24 hr 25 mg PO DAILY 01/09/25
Review of Systems
-
Constitutional: Reports No Symptoms
EENT: Reports No Symptoms
Respiratory: Reports Trouble Breathing
Cardiac: Reports No Symptoms
Abdomen/GI: Reports No Symptoms
: Reports No Symptoms
Musculoskeletal: Reports No Symptoms
Skin: Reports No Symptoms
Neurological: Reports No Symptoms
Endocrine: Reports No Symptoms
Hematologic/Lymphatic: Reports No Symptoms
Psych: Reports No Symptoms
Physical Exam
Vital Signs
Vital Signs
Temp Pulse Resp BP Pulse Ox
98.0 F 113 22 114/65 90
01/09/25 09:37 01/09/25 12:00 01/09/25 12:00 01/09/25 12:00 01/09/25 12:00
Physical Exam
General: Well Developed, Well Nourished and No Apparent Distress
HEENT: NormoCephalic, Moist mucous membranes and Atraumatic
Respiratory: Clear
Cardiac: S1/S2 and Regular Rhythm; No Murmur or Rub
GI: Soft, Non Tender, Non Distended and Normal Bowel Sounds; No Organomegaly
Rectal: Deferred by Provider
Musculoskeletal: No Clubbing, No Cyanosis and No Edema
Skin: No Rash
Neuro: AO x 3 and Nonfocal/grossly intact
Psych: Calm
Laboratory Results
-
01/09/25 10:23
01/09/25 10:23
Laboratory Results
PT 20.7 Sec (11.4-14.6) H 01/09/25 10:23
INR 1.76 01/09/25 10:23
APTT 41.9 Sec (23.4-35.0) H 01/09/25 10:23
Total Bilirubin 2.7 mg/dl (0.2-1.3) H 01/09/25 10:23
AST 45 U/L (14-36) H 01/09/25 10:23
ALT 70 U/L (0-35) H 01/09/25 10:23
Alkaline Phosphatase 76 U/L (38-126) 01/09/25 10:23
Troponin I 0.021 ng/ml 01/09/25 10:23
Data Reviewed
-
Diagnostic Radiology: Report Reviewed by me
Lab Data: Labs Reviewed by me
Impression/Plan
-
# sob concern for Symptomatic A-fib
- Chest x-ray with clear lungs, no significant changes
- EKG with A-fib with RVR
- Amiodarone continue
- Eliquis continued
- Metoprolol continued
- Patient was attempted cardioversion on 12/26/2024 but she did not maintain normal sinus rhythm
concern for mild CHF
-received a dose of Lasix in Er
-strict I&o, daily weight
-fluid restriction
-cardiology consulted.
# Leukocytosis likely reactive
- WBC 11.4, patient is afebrile
Plan continue to monitor
# Transaminitis
# History of Biliary cirrhosis
- AST 45, ALT 70, T. bili 2.7
-ursodiol continued
# Anxiety
- Alprazolam continue
#hypertension
- continue metoprolol
#GERD
- continue famotidine
Code status: full code
DVT prophylaxis: Eliquis
[2025-01-09] MEDS: LASIX 20 MG IV (12:58)
[2025-01-09] MEDS: LOPRESSOR 2.5 MG IV (12:59)
--- NOTE | 2025-01-09 13:31 | CM ---
chart reviewed and spoke with patient and her dtr Lian at ED bedside
Lives alone in 1 SH with no MOMO recently here at 12/26-12/30 for cardioversion?
PLOF independent no DME walking 3 miles a day daily
Dtr Lian stays overnight a few nights a week as needed
PCP Dr. Flor Hartley
Pharmacy [facility] in [place]
no hx of VN nor SNF
DCP is to go home. Dtr can drive
CM will continue to follow up for any dcp needs
--- NOTE | 2025-01-09 14:51 | CON.CAR ---
Addendum entered and electronically signed by Jose Ramon Carrion MD 01/09/25 15:35:
I saw and examined the patient.
The HAND SAMPLE MAKER or PA's note was reviewed and I agree with the note.
Comment: General: Well developed, well nourished in NAD.
Neck: Supple, no JVD, HJR, carotids +2 B/L, no bruits bilaterally.
Heart: Non displaced PMI, irregular, no murmurs, No S3, S4, no rubs.
Lungs: Clear to auscultation bilaterally, no wheeze, rhonchi, rubs bilaterally,
normal expiratory phase.
Extremities: No clubbing, cyanosis or edema bilaterally.
Neuro: Grossly nonfocal, awake, alert and oriented x3.
Lilibeth has a history of A-fib status post ablation in 2018 who failed Tikosyn therapy in December 2024 and status post unsuccessful cardioversion in December 2024 on chronic Eliquis, hypertension, hyperglycemia, GERD, primary biliary cirrhosis. She
was seen as an outpatient and switched to amiodarone with plans for an outpatient cardioversion and then redo ablation she was asked with worsening shortness of breath and acute diastolic CHF with continued atrial fibrillation.
Will diurese and continue amiodarone. Will plan on cardioversion in January 11, 2025. She is planned for an outpatient ablation as well. Discussed in detail with patient and daughter at bedside.
Original Note:
Consultation
Consultation Request
Date/Time Consultation Requested: 01/09/2025
Date/Time Consultation Performed: 01/09/2025
Requesting Provider: Dr. Mariscal
Performing Provider: Dr. Carrion
Reason for Consultation: Acute HF, persistent A-fib
Medical History
-
History of Present Illness:
Patient came to the ER today with symptoms of orthopnea starting on Thursday night and is being admitted with acute HF and persistent A-fib, cardiology has been consulted. Patient was just admitted to [facility] with rapid A-fib from 3 until
12/30/2024. During her last admission her chronic dose of Tikosyn that was effective over the last few years was stopped due to new ineffectiveness and instead patient was loaded with amiodarone. Patient had an unsuccessful CV in the ER on
12/26/2024. Patient followed up with us in the office then on 01/04/2025 and was set up for an elective CV on 01/24/2025 and then later scheduled to have another ablation on 03/09/2025. Patient and daughter report that she was doing well but then
suddenly had new symptoms of orthopnea starting on Thursday night and then she awoke in the middle of the night with PND and had trouble falling back to sleep due to breathlessness. Patient was short of breath throughout the day Thursday, that was
also yesterday. Patient had PND again last night and finally came to the ER today due to her ongoing symptoms. Her proBNP is 1500 compared to her last proBNP of 946. Her CXR is clear. ECG shows ongoing A-fib.
PMH:
Recent admission for rapid A-fib with discontinuation of Tikosyn and loading with amiodarone 12/26/2024 until 12/30/2024
Paroxysmal to persistent atrial fibrillation and typical atrial flutter
s/p PVI/flutter ablation 2018
Tikosyn therapy 2021 until 12/2024, stopped due to ineffectiveness
s/p unsuccessful CV 12/26/2024
Chronic Eliquis OAC
Hypertension
Hypercholesterolemia
History of GERD/peptic ulcer disease
History of vagal syncope and anxiety
Primary biliary cirrhosis
History of kyphoscoliosis
History of hyperthyroidism and history of GI bleeding with AVMs and cautery
Past Medical History
Past Medical History: Arrhythmias (PAF with PVI/CTI ablation 2018, now on dofetilide, presumed vagal syncope), CHF (HFpEF), GERD, HTN, Hypercholesterolemia, Hyperthyroidism and Other (Scoliosis, B12 deficiency, peptic ulcer disease, anxiety, primary
biliary cirrhosis, GI bleeding with AVMs status post cautery, remote tobacco use)
Past Surgical History: Gynecological (Salpingo oophorectomy) and Orthopedic (Spinal instrumentation with rods)
Social History
Tobacco: Former Smoker
Alcohol: Occasional (Less than 1 or 2/week)
Drug: None
Personal:
Living: Alone
Employment: Retired
Family History
Family History: CAD, Cancer (Aunt and daughter with breast cancer) and Hypertension
Allergies / Home Medications
Allergy/AdvReac Type Severity Reaction Status Date / Time
erythromycin base Allergy Rash Verified 01/09/25 09:39
Umjstcl-DPI-TtE Reductase Allergy elevated Verified 01/09/25 09:39
Inhibitor LFTs
�Medication �Instructions �Recorded �Confirmed �Type
apixaban 5 mg tablet (Eliquis) 5 mg PO BID Blood clot 03/22/15 01/09/25 History
prevention/tx
alprazolam 0.5 mg tablet 0.5 mg PO HS Mental Health/Anxiety 03/26/18 01/09/25 History
ursodiol 300 mg capsule 300 mg PO TID Gallstones 02/14/22 01/09/25 History
ascorbic acid (vitamin C) 1,000 mg 1,000 mg PO DAILY Supplement 11/01/24 01/09/25 History
tablet
calcium 315 mg (as 1 tab PO BID Supplement 11/01/24 01/09/25 History
citrate)-vitamin D3 5 mcg (200
unit) tablet
cyanocobalamin (vitamin B-12) 1,000 mcg IM QMONTH Supplement 11/01/24 01/09/25 History
1,000 mcg/mL injection solution
cyanocobalamin (vitamin B-12) 2,500 mcg PO DAILY Supplement 11/01/24 01/09/25 History
2,500 mcg tablet
estradiol 0.01% (0.1 mg/gram) 1 appful vaginal TUFR Hormonal 11/01/24 01/09/25 History
vaginal cream Agent
famotidine 40 mg tablet 40 mg PO HS Gastrointestinal Issue 11/01/24 01/09/25 History
zqkzkqvxfykv-ypjofctm-obcuzs tablet 1 tab PO DAILY Supplement 11/01/24 01/09/25 History
carboxymethylcellulose sodium 0.5 1 drp BOTH EYES BID Eye Condition 12/27/24 01/09/25 History
% eye drops in a dropperette
(Refresh Plus)
acetaminophen 325 mg tablet 650 mg PO Q6HPRN PRN mild pain 01/09/25 01/09/25 History
(Tylenol)
amiodarone 200 mg tablet (Pacerone) 200 mg PO BID Heart 01/09/25 01/09/25 History
Disease/Condition
cyclosporine 0.05 % eye drops in a 1 drp BOTH EYES Q12H Eye Condition 01/09/25 01/09/25 History
dropperette (Restasis)
metoprolol succinate 50 mg 50 mg PO BID Heart 01/09/25 01/09/25 History
tablet,extended release 24 hr Disease/Condition
Review of Systems
-
History Source: Patient and Family (Daughter sitting bedside to help with HPI)
All other systems: Negative unless noted
Physical Exam
Vital Signs
Temp Pulse Resp BP Pulse Ox
98.0 F 89 20 117/69 93
01/09/25 09:37 01/09/25 14:09 01/09/25 14:09 01/09/25 14:09 01/09/25 12:45
GEN: NAD, AAO x 3
HEENT: EOMI, MMM
LUNGS: RA. CTAB/L without wheeze or rales
CV: A-fib on telemetry. Irreg, S1/S2, no murmur
ABD: ND
EXT: No edema B/L LE
NEURO: Gross non-focal
SKIN: Warm, pink, dry. no rash
Lab Results
01/09/25 10:23
01/09/25 10:23
Troponin I 0.021 ng/ml 01/09/25 10:23
Awe-J-Ymcasmxjsti Pept 1500 pg/ml 11/17/25 10:23
Impression / Plan
-
PCP: Marek Hartley NP
Cardiology: Dr. Leslie and Dr. Brown
Impression:
Admitted with acute HF and persistent A-fib 01/09/2025
Recent admission for rapid A-fib with discontinuation of Tikosyn and loading with amiodarone 12/26/2024 until 12/30/2024
Paroxysmal to persistent atrial fibrillation and typical atrial flutter
s/p PVI/flutter ablation 2018
Tikosyn therapy 2021 until 12/2024, stopped due to ineffectiveness
s/p unsuccessful CV 12/26/2024
Chronic Eliquis OAC
Hypertension
Hypercholesterolemia
History of GERD/peptic ulcer disease
History of vagal syncope and anxiety
Primary biliary cirrhosis
History of kyphoscoliosis
History of hyperthyroidism and history of GI bleeding with AVMs and cautery
Echo 04/2022: EF 55-60%, normal RV, mild aortic regurgitation, mild mitral regurgitation, pulmonary artery systolic pressure is 20-25 mmHg
Echo 12/27/2024: EF 58%, no WMA, normal RV size and function, mild to moderate MR, trace TR without evidence of PHTN, no pericardial effusion
Plan:
-Patient came to the ER today with symptoms of orthopnea starting on Thursday night and is being admitted with acute HF and persistent A-fib, cardiology has been consulted. Patient was just admitted to [facility] with rapid A-fib from 12 26 until
12/30/2024. During her last admission her chronic dose of Tikosyn that was effective over the last few years was stopped due to new ineffectiveness and instead patient was loaded with amiodarone. Patient had an unsuccessful CV in the ER on
12/26/2024. Patient followed up with us in the office then on 01/04/2025 and was set up for an elective CV on 01/24/2025 and then later scheduled to have another ablation on 03/09/2025. Patient and daughter report that she was doing well but then
suddenly had new symptoms of orthopnea starting on Thursday night and then she awoke in the middle of the night with PND and had trouble falling back to sleep due to breathlessness. Patient was short of breath throughout the day Thursday, that was
also yesterday. Patient had PND again last night and finally came to the ER today due to her ongoing symptoms. Her proBNP is 1500 compared to her last proBNP of 946. Her CXR is clear. ECG shows ongoing A-fib.
-ECG reviewed by me is A-fib with rapid ventricular response
-Patient was given Lopressor 2.5 mg IV x 1 in the ER at about 1300 today, HR has improved and is in the range of 105-115 most of the time. Patient is asymptomatic and does not feel palpitations with her A-fib
-Outpatient dose of amiodarone 200 mg BID will be continued
-QTc 487 ms on my review of the ECG from 01/09/2025
-At this point we will cancel planned outpatient CV and likely perform inpatient CV on 01/11/2025
-Patient has not missed any doses of her Eliquis
-Patient is still scheduled for upcoming ablation on 03/09/2025
-Patient appears to be in acute HF with symptoms of orthopnea and PND. proBNP elevated at 1500. CXR is clear. Agree with Lasix 20 mg IV x 1 in the ER. Patient was not taking a loop diuretic prior to admission. Recommend Lasix 40 mg IV daily for
diuresis and patient will likely need Lasix upon discharge.
-EF was 50% by echo 12/27/2024. Suspect ongoing A-fib is driving her acute HF.
-Outpatient dose of Toprol-XL 50 mg BID should be continued
-Not sure the utility of adding aldosterone antagonist or SGLT2 inhibitor as acute HF is likely being driven by A-fib
[2025-01-09] MEDS: ACTIGALL 300 MG PO (18:31)
[2025-01-09] MEDS: PACERONE 200 MG PO (21:29)
[2025-01-09] MEDS: ELIQUIS 5 MG PO (21:29)
[2025-01-09] MEDS: OSCAL 500 + D 500 MG PO (21:29)
[2025-01-09] MEDS: TOPROL XL 50 MG PO (21:29)
[2025-01-09] MEDS: PEPCID 20 MG PO (21:29)
[2025-01-09] MEDS: REFRESH CELLUVISC GEL 1 DROPS OPHTH (21:40)
--- NOTE | 2025-01-09 21:57 | PTCARENOTE ---
Received patient from ED via stretcher into room 2903, w/ patients daughter at bedside. Tele monitor applied, pt Afib. VSS. Ambulates self to bathroom, denied any dizziness. Patient c/o generalized weakness. Oriented patient to room, call mondragon
within reach.
[2025-01-09] MEDS: XANAX 0.5 MG PO (23:17)
[2025-01-10] VITALS (8 sets, daily range): BP systolic 102–133; BP diastolic 56–94; BMI 21.4
[2025-01-10] MEDS: ACTIGALL 300 MG PO ×4 (01:14→22:04)
[2025-01-10 04:38] LABS: Hematocrit 37.2 % (37.0-47.0); Hemoglobin 12.8 g/dL (12.0-16.0); Mean Corp Hgb Conc. 34.4 g/dL (33.0-37.0); Mean Corpuscular Volume 92.3 fL (81.0-99.0); Platelet Count 146 10^3/uL (130-400); Red Cell Dist. Width 12.9 % (11.5-14.5)
[2025-01-10 05:19] LABS: Blood Urea Nitrogen 17 mg/dl (7-17); Calcium 8.6 mg/dl (8.4-10.2); Carbon Dioxide 28 mmol/L (22-30); Chloride 101 mmol/L (98-107); Estimated Creatinine Clearance 51 ml/min; Glucose 92 mg/dl (70-99); HDL Cholesterol 41 mg/dl; LDL Cholesterol, Calculated 69 mg/dl; Magnesium 1.9 mg/dl (1.6-2.3); Potassium 3.7 mmol/L (3.5-5.1); Sodium 136 mmol/L (135-145); Very Low Density Lipoprotein 14 mg/dl (0-30); eGFR > 60.00
[2025-01-10] MEDS: FLUSH (NSS) 1 FLUSH IV (08:39)
[2025-01-10] MEDS: LASIX 40 MG IV (08:39)
[2025-01-10] MEDS: VITAMIN C 1000 MG PO (08:40)
[2025-01-10] MEDS: VITAMIN B-12 2500 MCG PO (08:40)
[2025-01-10] MEDS: ELIQUIS 5 MG PO ×2 (08:41→20:13)
[2025-01-10] MEDS: TOPROL XL 50 MG PO ×2 (08:41→20:13)
[2025-01-10] MEDS: REFRESH CELLUVISC GEL 1 DROPS OPHTH ×2 (08:41→22:04)
[2025-01-10] MEDS: PACERONE 200 MG PO ×2 (08:41→20:12)
[2025-01-10] MEDS: OSCAL 500 + D 500 MG PO ×2 (08:41→20:13)
--- NOTE | 2025-01-10 09:39 | PTCARENOTE ---
received patient this am sitting up in chair, voices no concerns at this time. monitor shows Afib, VSS. reviewed daily plan, patient verbalizes understanding.
--- NOTE | 2025-01-10 10:14 | W.PN.CARDCBS ---
Addendum entered and electronically signed by Matti Esquivel DO 01/10/25 16:02:
I saw and examined the patient.
The Manager Membership's note was reviewed and I agree with the note.
Comment:
Plan:
Cont IV lasix diuresis
For cv in AM
NPO after midnight
Patient is scheduled for upcoming ablation on 03/09/2025
Reviewed with family at bedside.
Original Note:
Today's Communication / Plan
-
N.p.o. after midnight
Cardioversion in a.m.
Continue IV Lasix
Impression / Plan
-
PCP: Marek Hartley NP
Cardiology: Dr. Leslie and Dr. Brown
Impression:
Admitted with acute HF and persistent A-fib 01/09/2025
Recent admission for rapid A-fib with discontinuation of Tikosyn and loading with amiodarone 12/26/2024 until 12/30/2024
Paroxysmal to persistent atrial fibrillation and typical atrial flutter
s/p PVI/flutter ablation 2018
Tikosyn therapy 2021 until 12/2024, stopped due to ineffectiveness
s/p unsuccessful CV 12/26/2024
Chronic Eliquis OAC
Hypertension
Hypercholesterolemia
History of GERD/peptic ulcer disease
History of vagal syncope and anxiety
Primary biliary cirrhosis
History of kyphoscoliosis
History of hyperthyroidism and history of GI bleeding with AVMs and cautery
Echo 04/2022: EF 55-60%, normal RV, mild aortic regurgitation, mild mitral regurgitation, pulmonary artery systolic pressure is 20-25 mmHg
Echo 12/27/2024: EF 58%, no WMA, normal RV size and function, mild to moderate MR, trace TR without evidence of PHTN, no pericardial effusion
Plan:
Admitted with SOB with acute HF, proBNP 1500 and persistent A-fib 01/09/2025
Presented with atrial fibrillation with rapid ventricular response. Heart rates per review of telemetry 01/10/2025 have improved and are now reasonably controlled.
- Continue amiodarone 200 mg twice a day and metoprolol 50 mg twice a day. QTc 487 ms on my review of the ECG from 01/09/2025
- Scheduled for inpatient CV on 01/11/2025. Patient has not missed any doses of her Eliquis
- Patient is still scheduled for upcoming ablation on 03/09/2025
Acute HF, proBNP 1500 with symptoms of orthopnea and PND
-Ongoing diuresis with Lasix 40 mg IV.
-Patient was not taking a loop diuretic prior to admission. Patient will likely need Lasix upon discharge.
-EF was 50% by echo 12/27/2024. Suspect ongoing A-fib is driving her acute HF. Hopefully heart failure will improve with holiness of sinus rhythm
-Outpatient dose of Toprol-XL 50 mg BID should be continued
-Not sure the utility of adding aldosterone antagonist or SGLT2 inhibitor as acute HF is likely being driven by A-fib
HPI 01/09/2025:
Patient came to the ER today with symptoms of orthopnea starting on Thursday night and is being admitted with acute HF and persistent A-fib, cardiology has been consulted. Patient was just admitted to [facility] with rapid A-fib from 12 26 until
12/30/2024. During her last admission her chronic dose of Tikosyn that was effective over the last few years was stopped due to new ineffectiveness and instead patient was loaded with amiodarone. Patient had an unsuccessful CV in the ER on
12/26/2024. Patient followed up with us in the office then on 01/04/2025 and was set up for an elective CV on 01/24/2025 and then later scheduled to have another ablation on 03/09/2025. Patient and daughter report that she was doing well but then
suddenly had new symptoms of orthopnea starting on Thursday night and then she awoke in the middle of the night with PND and had trouble falling back to sleep due to breathlessness. Patient was short of breath throughout the day Thursday, that was
also yesterday. Patient had PND again last night and finally came to the ER today due to her ongoing symptoms. Her proBNP is 1500 compared to her last proBNP of 946. Her CXR is clear. ECG shows ongoing A-fib.
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
Subjective
Date of Service: January 10, 2025
Patient seen and examined. Patient reports she feels shortness of breath with exertion and continues to have palpitations and rapid heartbeat.
Objective
Labs:
01/10/25 04:30
01/10/25 04:30
Labs
Hgb 12.8 g/dL (12.0-16.0) 01/10/25 04:30
Hct 37.2 % (37.0-47.0) 01/10/25 04:30
Plt Count 146 10^3/uL (130-400) 01/10/25 04:30
PT 20.7 Sec (11.4-14.6) H 01/09/25 10:23
INR 1.76 01/09/25 10:23
APTT 41.9 Sec (23.4-35.0) H 01/09/25 10:23
Sodium 136 mmol/L (135-145) 01/10/25 04:30
Potassium 3.7 mmol/L (3.5-5.1) 01/10/25 04:30
BUN 17 mg/dl (7-17) 01/10/25 04:30
Creatinine 0.8 mg/dL (0.6-1.0) 01/10/25 04:30
Glucose 92 mg/dl (70-99) 01/10/25 04:30
Troponins
01/09/25
10:23
Troponin I 0.021
Vital Signs and I&O:
Vital Signs
Temp Pulse Resp BP Pulse Ox
97.9 F 91 16 103/65 96
01/10/25 07:32 01/10/25 09:00 01/10/25 07:32 01/10/25 08:41 01/10/25 08:30
Vital Signs
Temp Pulse Resp BP Pulse Ox
97.9 F 91 16 103/65 96
01/10/25 07:32 01/10/25 09:00 01/10/25 07:32 01/10/25 08:41 01/10/25 08:30
Intake & Output
01/08/25 01/09/25 01/10/25 01/11/25
06:59 06:59 06:59 06:59
Intake Total 500 / 500
Output Total 1400 / 1400
Balance -900 / -900
Physical Exam
Physical Exam
GEN: No distress, awake, alert, oriented x3
HEENT: supple, anicteric, mmm, EOMI
LUNGS: CTA bilaterally, no wheezes/rales
CV: Irreg, S1/S2, no murmur
ABD: soft, BS+, NT/ND
EXT: No cyanosis, clubbing, edema
NEURO: Gross non-focal
SKIN: Warm, pink, dry. no rash
[2025-01-10 11:00] LABS: ALT (SGPT) 56 U/L (0-35); AST (SGOT) 35 U/L (14-36); Albumin 3.5 g/dl (3.5-5.0); Alkaline Phosphatase 70 U/L (38-126); Total Protein 6.3 g/dl (6.3-8.2)
--- NOTE | 2025-01-10 11:40 | PTCARENOTE ---
patient called out c/o being SOB on ambulation to BR, monitor remains afib with HR in the 80's, o2 sat on RA remained at 96%. when returning to bed, patient recovered quickly.
--- NOTE | 2025-01-10 12:40 | W.PN.HOSP.TC ---
Today's Communication/Plan
-
NPO p MN for CV tomorrow
IV diuretics
follow DCA cards recs
Assessment / Plan
Assessment / Plan
Assessment:
Acute HFpEF in setting of rapid persistent A. Fib
- recent admission with discontinuation of Tikosyn and loading with amiodarone
- returns with rapid A. Fib and concern for CHF
- continue IV Lasix requires intensive monitoring of I/Os, weights, lytes
- Na and fluid restrictions. CHF education.
- s/p unsuccessful CV 12/26/2024; repeat attempt 01/11
- continue Amiodarone
- chronic anticoagulation - continue Eliquis
- DCA cards following
Essential HTN
- continue Metoprolol
Leukocytosis, resolved - likely reactive
Transaminitis likely passive congestion in setting of CHF
- monitor labs
Hypercholesterolemia
History of GERD/peptic ulcer disease
- continue H2 edi
History of vagal syncope and anxiety
- prn Xanax
Primary biliary cirrhosis
- on Ursodiol
History of kyphoscoliosis
History of hyperthyroidism
history of GI bleeding with AVMs and cautery
DVT ppx: Eliquis
Code: Full
Anticipated Discharge: 24 - 48 hours
Subjective/Interval History
-
Date of Service: January 10, 2025
resting comfortably
denies cp or sob
remains in rate controlled. A. Fib with plan for CV tomorrow
Objective Data
-
Labs:
Laboratory Results
01/10/25
04:30
WBC 7.7
Hgb 12.8
Hct 37.2
Plt Count 146
Sodium 136
Potassium 3.7
Chloride 101
Carbon Dioxide 28
BUN 17
Creatinine 0.8
Glucose 92
Calcium 8.6
Total Bilirubin 2.0 H
AST 35
ALT 56 H
Alkaline Phosphatase 70
Vital Signs:
Vital Signs
Temp Pulse Resp BP Pulse Ox
97.4 F 91 16 103/65 97
01/10/25 11:59 01/10/25 09:00 01/10/25 11:59 01/10/25 08:41 01/10/25 11:59
I&O
01/09/25 01/10/25 01/11/25
06:59 06:59 06:59
Intake Total 500 / 500
Output Total 1400 / 1400 625 / 625
Balance -900 / -900 -625 / -625
Physical Exam
-
General: No Apparent Distress
HEENT: Normocephalic and Atraumatic
Respiratory: Clear to Auscultation; Negative Wheezes or Rales
Cardiac: Irregular Rhythm
GI: Soft and Nontender
Musculoskeletal: No Edema
Neuro: AO x 3
Psych: Calm
Data Reviewed
-
Total Time Spent with Patient (in minutes): 51
Labs: Labs Reviewed by me
--- NOTE | 2025-01-10 14:15 | CM ---
Spoke to patient in room. She lives with her daughter molded grid and parts inspector, 1 story home, 1 step to enter, no DMEs. She denies DC planning needs. Plan is for DC to home when medically stable.
[2025-01-10] MEDS: PEPCID 20 MG PO (22:04)
[2025-01-10] MEDS: XANAX 0.5 MG PO (23:04)
[2025-01-11] VITALS (10 sets, daily range): BP systolic 86–118; BP diastolic 46–72; BMI 21.3
[2025-01-11 05:10] LABS: ALT (SGPT) 45 U/L (0-35); AST (SGOT) 22 U/L (14-36); Albumin 3.5 g/dl (3.5-5.0); Alkaline Phosphatase 81 U/L (38-126); Blood Urea Nitrogen 20 mg/dl (7-17); Calcium 9.1 mg/dl (8.4-10.2); Carbon Dioxide 27 mmol/L (22-30); Chloride 101 mmol/L (98-107); Estimated Creatinine Clearance 51 ml/min; Glucose 89 mg/dl (70-99); Potassium 3.5 mmol/L (3.5-5.1); Sodium 134 mmol/L (135-145); Total Protein 6.3 g/dl (6.3-8.2); eGFR > 60.00
[2025-01-11 05:14] LABS: Hematocrit 40.0 % (37.0-47.0); Hemoglobin 13.2 g/dL (12.0-16.0); Mean Corp Hgb Conc. 33.0 g/dL (33.0-37.0); Mean Corpuscular Volume 95.5 fL (81.0-99.0); Platelet Count 180 10^3/uL (130-400); Red Cell Dist. Width 12.9 % (11.5-14.5)
--- NOTE | 2025-01-11 05:35 | PTCARENOTE ---
Pt AFib on monitor, VSS. Pt denies any discomfort this shift. Ambulates independently in the room. Call mondragon within reach
--- NOTE | 2025-01-11 06:17 | DOWNTIME ---
There was a [employer] Client Counselor Education Professor Downtime on 01/11/2025 from 0100 to 01/11/2025 at 0255. Downtime documentation of patient's care, including medication administrations, has been reconciled in the electronic record per guidelines. Refer to the
patient's paper chart under the miscellaneous tab to see printed paper medication records and downtime forms.
[2025-01-11] MEDS: VITAMIN C 1000 MG PO (08:05)
[2025-01-11] MEDS: OSCAL 500 + D 500 MG PO ×2 (08:05→19:40)
[2025-01-11] MEDS: PACERONE 200 MG PO (08:05)
[2025-01-11] MEDS: TOPROL XL 50 MG PO (08:05)
[2025-01-11] MEDS: ACTIGALL 300 MG PO ×3 (08:05→22:07)
[2025-01-11] MEDS: LASIX 40 MG IV (08:06)
[2025-01-11] MEDS: VITAMIN B-12 2500 MCG PO (08:06)
[2025-01-11] MEDS: ELIQUIS 5 MG PO ×2 (08:06→19:40)
[2025-01-11] MEDS: REFRESH CELLUVISC GEL 1 DROPS OPHTH ×2 (08:30→19:40)
--- NOTE | 2025-01-11 09:00 | PTCARENOTE ---
Received Pt from handoff, Zohra-sukhdev on the monitor, VSS, awaiting cardioversion, daughter at bedside. Plan of care discussed with pt and daughter, all questions were answered. Pt has no complaints at this time.
--- NOTE | 2025-01-11 09:01 | W.PN.CARDCBS ---
Today's Communication / Plan
-
Changed to p.o. Lasix
For cardioversion later today and stable cardiology for discharge after cardioversion on amiodarone 200 mg p.o. twice daily
Impression / Plan
-
PCP: Marek Hartley NP
Cardiology: Dr. Leslie and Dr. Brown
Impression:
Admitted with acute HF and persistent A-fib 01/09/2025
Recent admission for rapid A-fib with discontinuation of Tikosyn and loading with amiodarone 12/26/2024 until 12/30/2024
Paroxysmal to persistent atrial fibrillation and typical atrial flutter
s/p PVI/flutter ablation 2018
Tikosyn therapy 2021 until 12/2024, stopped due to ineffectiveness
s/p unsuccessful CV 12/26/2024
Chronic Eliquis OAC
Hypertension
Hypercholesterolemia
History of GERD/peptic ulcer disease
History of vagal syncope and anxiety
Primary biliary cirrhosis
History of kyphoscoliosis
History of hyperthyroidism and history of GI bleeding with AVMs and cautery
Echo 04/2022: EF 55-60%, normal RV, mild aortic regurgitation, mild mitral regurgitation, pulmonary artery systolic pressure is 20-25 mmHg
Echo 12/27/2024: EF 58%, no WMA, normal RV size and function, mild to moderate MR, trace TR without evidence of PHTN, no pericardial effusion
Plan:
She appears much improved from a volume standpoint and will change IV Lasix to p.o.
She remains in atrial fibrillation on amiodarone
Plan is for cardioversion later today
Stable cardiology status for discharge
Updated daughter at bedside and as well as primary service
Patient is still scheduled for upcoming ablation on 03/09/2025
HPI 01/09/2025:
Patient came to the ER today with symptoms of orthopnea starting on Thursday night and is being admitted with acute HF and persistent A-fib, cardiology has been consulted. Patient was just admitted to [facility] with rapid A-fib from 12 26 until
12/30/2024. During her last admission her chronic dose of Tikosyn that was effective over the last few years was stopped due to new ineffectiveness and instead patient was loaded with amiodarone. Patient had an unsuccessful CV in the ER on
12/26/2024. Patient followed up with us in the office then on 01/04/2025 and was set up for an elective CV on 01/24/2025 and then later scheduled to have another ablation on 03/09/2025. Patient and daughter report that she was doing well but then
suddenly had new symptoms of orthopnea starting on Thursday night and then she awoke in the middle of the night with PND and had trouble falling back to sleep due to breathlessness. Patient was short of breath throughout the day Thursday, that was
also yesterday. Patient had PND again last night and finally came to the ER today due to her ongoing symptoms. Her proBNP is 1500 compared to her last proBNP of 946. Her CXR is clear. ECG shows ongoing A-fib.
Progress Note - Director [employer]
Subjective
Date of Service: January 11, 2025
No chest pain or shortness of breath
Objective
Labs:
01/11/25 04:08
01/11/25 04:12
Labs
Hgb 13.2 g/dL (12.0-16.0) 01/11/25 04:08
Hct 40.0 % (37.0-47.0) 01/11/25 04:08
Plt Count 180 10^3/uL (130-400) D 01/11/25 04:08
PT 20.7 Sec (11.4-14.6) H 01/09/25 10:23
INR 1.76 01/09/25 10:23
APTT 41.9 Sec (23.4-35.0) H 01/09/25 10:23
Sodium 134 mmol/L (135-145) L 01/11/25 04:12
Potassium 3.5 mmol/L (3.5-5.1) 01/11/25 04:12
BUN 20 mg/dl (7-17) H 01/11/25 04:12
Creatinine 0.8 mg/dL (0.6-1.0) 01/11/25 04:12
Glucose 89 mg/dl (70-99) 01/11/25 04:12
Troponins
01/09/25
10:23
Troponin I 0.021
Vital Signs and I&O:
Vital Signs
Temp Pulse Resp BP Pulse Ox
98.0 F 82 18 101/58 96
01/11/25 07:15 01/11/25 08:06 01/11/25 07:15 01/11/25 08:06 01/11/25 07:15
Vital Signs
Temp Pulse Resp BP Pulse Ox
98.0 F 82 18 101/58 96
01/11/25 07:15 01/11/25 08:06 01/11/25 07:15 01/11/25 08:06 01/11/25 07:15
Intake & Output
01/09/25 01/10/25 01/11/25 01/12/25
06:59 06:59 06:59 06:59
Intake Total 500 / 500 350 / 350
Output Total 1400 / 1400 1525 / 1525
Balance -900 / -900 -1175 / -1175
Physical Exam
Physical Exam
General: Well developed, well nourished in NAD.
Neck: Supple, no JVD, HJR, carotids +2 B/L, no bruits bilaterally.
Heart: Non displaced PMI, irregular, no murmurs, No S3, S4, no rubs.
Lungs: Clear to auscultation bilaterally, no wheeze, rhonchi, rubs bilaterally,
normal expiratory phase.
Extremities: No clubbing, cyanosis or edema bilaterally.
Neuro: Grossly nonfocal, awake, alert and oriented x3.
--- NOTE | 2025-01-11 09:15 | W.PN.UPDATE ---
Update Note
Progress Note Update
Patient was offered heart failure follow-up visit tomorrow at 3:20 PM in addition to her previously scheduled Dr. Brown appointment for 02/08/2025, patient is not interested in being seen in the office ahead of her Dr. Brown appointment.
Patient and family also declined VN.
--- NOTE | 2025-01-11 09:48 | W.PN.HOSP.TC ---
Addendum entered and electronically signed by Hailey Graves MD 01/11/25 12:48:
s/p CV from A. Fib into NSR with APCs, briefly returned to A. Fib. Now in rate controlled, asymptomatic A Flutter. Dr. Carrion d/w EP Dr. Brown. Ok for dc as still in Amio load phase.
Original Note:
Today's Communication/Plan
-
await CV And outcome, d/w Cards final recs prior to DC
Assessment / Plan
Assessment / Plan
Assessment:
Acute HFpEF in setting of rapid persistent A. Fib
- recent admission with discontinuation of Tikosyn and loading with amiodarone
- returns with rapid A. Fib and concern for CHF
- s/p IV Lasix course. Continue Lasix 40mg daily
- Na and fluid restrictions. CHF education.
- s/p unsuccessful CV 12/26/2024; repeat attempt today
- continue Amiodarone
- chronic anticoagulation - continue Eliquis
- DCA cards OP f/u
- eventual Ablation 03/09/25
Essential HTN
- continue Metoprolol
Leukocytosis, resolved - likely reactive
Transaminitis likely passive congestion in setting of CHF
- monitor labs
Hypercholesterolemia
History of GERD/peptic ulcer disease
- continue H2 edi
History of vagal syncope and anxiety
- prn Xanax
Primary biliary cirrhosis
- on Ursodiol
History of kyphoscoliosis
History of hyperthyroidism
history of GI bleeding with AVMs and cautery
DVT ppx: Eliquis
Code: Full
Anticipated Discharge: Today
Subjective/Interval History
-
Date of Service: January 11, 2025
resting comfortably, no cp/sob/palps
for CV around 11
Objective Data
-
Labs:
Laboratory Results
01/11/25 01/11/25
04:08 04:12
WBC 7.6
Hgb 13.2
Hct 40.0
Plt Count 180 D
Sodium 134 L
Potassium 3.5
Chloride 101
Carbon Dioxide 27
BUN 20 H
Creatinine 0.8
Glucose 89
Calcium 9.1
Total Bilirubin 1.3
AST 22
ALT 45 H
Alkaline Phosphatase 81
Vital Signs:
Vital Signs
Temp Pulse Resp BP Pulse Ox
98.0 F 82 18 101/58 96
01/11/25 07:15 01/11/25 08:06 01/11/25 07:15 01/11/25 08:06 01/11/25 07:15
I&O
01/10/25 01/11/25 01/12/25
06:59 06:59 06:59
Intake Total 500 / 500 350 / 350
Output Total 1400 / 1400 1525 / 1525
Balance -900 / -900 -1175 / -1175
Physical Exam
-
General: No Apparent Distress
HEENT: Normocephalic and Atraumatic
Respiratory: Negative Wheezes or Rales
Cardiac: Irregular Rhythm
GI: Soft and Nontender
Genito-urinary: No Costovertebral Tender
Neuro: AO x 3
Psych: Calm
Data Reviewed
-
Total Time Spent with Patient (in minutes): 44
Labs: Labs Reviewed by me
--- NOTE | 2025-01-11 12:03 | PTCARENOTE ---
Pt. received back from cardioversion, 1 shock given and pt converted to SB in the 50's. Nurse said pt did flip back into A-fib for 5 minutes but flipped herself back into SB. Pt is now in SB heart rate 57.
--- NOTE | 2025-01-11 12:20 | PTCARENOTE ---
Addendum entered by Brinda Nieto RN 01/11/25 15:52:
Pt is now NSR.
Original Note:
RN noticed pt's heart rate in the low 100's, tiger texted Dr. Graves, order for EKG put in. EKG showed A-flutter, notified Dr. Graves through TT and he will consult with Cardiology now.
--- NOTE | 2025-01-11 14:36 | W.PN.UPDATE ---
Update Note
Progress Note Update
Updated patient and daughter in the room. Patient initially had successful CV with methodist of SR, but then recurred with atrial flutter. While updating patient and daughter in the room patient noted to have spontaneous methodist of SR, no
obvious symptomatic change. Reviewed plan of care with patient and daughter including increasing amiodarone to 400 mg TID starting now and increasing Toprol-XL to 75 mg BID. We were also able to move up patient's ablation to 02/22/2025. Patient
and daughter approve of plan and pending telemetry overnight patient can be discharged to home tomorrow. Hospitalist attending and nursing updated by me.
[2025-01-11] MEDS: PACERONE 400 MG PO ×2 (14:49→22:07)
--- NOTE | 2025-01-11 19:35 | PTCARENOTE ---
Pt's BP 92/51 and then 98/55 - per Dr. Murali smith to give Toprol 75mg as ordered. Pt. is in NSR rate 60's. Asymptomatic with lower BP.
[2025-01-11] MEDS: TOPROL XL 75 MG PO (19:41)
[2025-01-11] MEDS: KCL 40 MEQ PO (20:06)
[2025-01-11] MEDS: XANAX 0.5 MG PO (22:06)
[2025-01-11] MEDS: PEPCID 20 MG PO (22:06)
[2025-01-12 03:45] VITALS: BP 101/57
[2025-01-12 03:57] VITALS: BMI 21.4
[2025-01-12 04:27] LABS: Hematocrit 36.5 % (37.0-47.0); Hemoglobin 12.1 g/dL (12.0-16.0); Mean Corp Hgb Conc. 33.2 g/dL (33.0-37.0); Mean Corpuscular Volume 97.9 fL (81.0-99.0); Platelet Count 194 10^3/uL (130-400); Red Cell Dist. Width 12.9 % (11.5-14.5)
[2025-01-12 04:53] LABS: ALT (SGPT) 34 U/L (0-35); AST (SGOT) 18 U/L (14-36); Albumin 3.5 g/dl (3.5-5.0); Alkaline Phosphatase 80 U/L (38-126); Blood Urea Nitrogen 31 mg/dl (7-17); Calcium 9.4 mg/dl (8.4-10.2); Carbon Dioxide 28 mmol/L (22-30); Chloride 101 mmol/L (98-107); Estimated Creatinine Clearance 37 ml/min; Glucose 96 mg/dl (70-99); Potassium 4.3 mmol/L (3.5-5.1); Sodium 135 mmol/L (135-145); Total Protein 6.1 g/dl (6.3-8.2); eGFR 50.17
[2025-01-12 06:36] VITALS: BP 101/47
--- NOTE | 2025-01-12 07:36 | W.PN.CARDCBS ---
Addendum entered and electronically signed by Елена Wilson MD 01/12/25 10:33:
I saw and examined the patient.
The Director Of Recreation Therapy's note was reviewed and I agree with the note.
Comment:
She remains in sinus rhythm. She was initially admitted with acute HF and persistent A-fib 01/09/2025. Volume status currently stable.
She also had recent admission for rapid A-fib with discontinuation of Tikosyn and loading with amiodarone 12/26/2024 until 12/30/2024.
Unsuccessful cardioversion 12/26/2024 and 01/12/2025 with quick return to atrial arrhythmia. Prior PVI and flutter ablation 2018.
Paroxysmal to persistent atrial fibrillation and atrial flutter/atrial tachycardia
Plan at this time:
- She remains in sinus rhythm. Continue current medications with reduction of amiodarone to 200 mg twice daily on discharge.
- She is stable for discharge with planned PVI in January
- Continue current dose of Lasix and she should call if she gains 3 pounds in 1 day or 5 pounds in 1 week. Error below she will be discharged on Lasix 40 mg daily.
Follow-up has been arranged.
Original Note:
Today's Communication / Plan
-
Upon discharge reduce amiodarone to 200 mg BID
Ablation scheduled for 02/22/2025
Continue higher dose Toprol-XL 75 mg BID
Continue usual dose of Lasix 40 mg PO BID
Discharge instructions updated with cardiology follow-up and medication changes
Impression / Plan
-
PCP: Marek Hartley NP
Cardiology: Dr. Leslie and Dr. Brown
Impression:
Admitted with acute HF and persistent A-fib 01/09/2025
Recent admission for rapid A-fib with discontinuation of Tikosyn and loading with amiodarone 12/26/2024 until 12/30/2024
Paroxysmal to persistent atrial fibrillation and typical atrial flutter
s/p PVI/flutter ablation 2018
Tikosyn therapy 2021 until 12/2024, stopped due to ineffectiveness
s/p unsuccessful CV 12/26/2024
Chronic Eliquis OAC
Hypertension
Hypercholesterolemia
History of GERD/peptic ulcer disease
History of vagal syncope and anxiety
Primary biliary cirrhosis
History of kyphoscoliosis
History of hyperthyroidism and history of GI bleeding with AVMs and cautery
Echo 04/2022: EF 55-60%, normal RV, mild aortic regurgitation, mild mitral regurgitation, pulmonary artery systolic pressure is 20-25 mmHg
Echo 12/27/2024: EF 58%, no WMA, normal RV size and function, mild to moderate MR, trace TR without evidence of PHTN, no pericardial effusion
Plan:
-Patient admitted with acute HF and recurrent A-fib on 01/09/2025. Patient had CV 01/11/2025 and initially had sikhism of sinus rhythm, but later recurred with atrial flutter. Patient then spontaneously converted to SR again on 01/11/2025.
-Patient had CVA 01/11/2025 and initially had sikhism of sinus rhythm. Patient later recurred with typical atrial flutter. Outpatient dose of Toprol-XL increased to 75 mg BID and amiodarone dose increased to 400 mg TID. Patient then
spontaneously converted to SR later in the day on 01/11/2025.
-Tele reviewed by me 01/12/25 and patient remains in SR, no recurrence of atrial arrhythmia overnight.
-ECG reviewed by me 01/12/25 and shows SR with QTc 453 ms.
-Resume amiodarone 200 mg BID upon d/c to home and plan to continue this dose until planned PVI 02/22/25.
-Cont higher dose Toprol XL 75 mg BID
-Weight as high as 139 lbs on admission and weight is down to 132 lbs on 01/12/2025.
-Patient diuresed with Lasix 40 mg IV daily and outpatient dose of Lasix 40 mg PO daily was resumed on 01/12/2025
-EF was 50% by echo 12/27/2024. Suspect recurrent A-fib was driving her acute HF.
-Outpatient dose of Toprol-XL as noted above
-Not sure the utility of adding aldosterone antagonist or SGLT2 inhibitor as acute HF is likely being driven by A-fib
-Reviewed with nursing and hospitalist attending, plan was for discharge to home 01/12/2025 with outpatient cardiology follow-up arranged
[facility] 01/09/2025:
Patient came to the ER today with symptoms of orthopnea starting on Thursday night and is being admitted with acute HF and persistent A-fib, cardiology has been consulted. Patient was just admitted to [facility] with rapid A-fib from 12 26 until
12/30/2024. During her last admission her chronic dose of Tikosyn that was effective over the last few years was stopped due to new ineffectiveness and instead patient was loaded with amiodarone. Patient had an unsuccessful CV in the ER on
12/26/2024. Patient followed up with us in the office then on 01/04/2025 and was set up for an elective CV on 01/24/2025 and then later scheduled to have another ablation on 03/09/2025. Patient and daughter report that she was doing well but then
suddenly had new symptoms of orthopnea starting on Thursday night and then she awoke in the middle of the night with PND and had trouble falling back to sleep due to breathlessness. Patient was short of breath throughout the day Thursday, that was
also yesterday. Patient had PND again last night and finally came to the ER today due to her ongoing symptoms. Her proBNP is 1500 compared to her last proBNP of 946. Her CXR is clear. ECG shows ongoing A-fib.
Progress Note - [employer]
Subjective
Date of Service: January 12, 2025
She feels well, no sensation of palpitations
Objective
Labs:
01/12/25 03:52
01/12/25 03:52
Labs
Hgb 12.1 g/dL (12.0-16.0) 01/12/25 03:52
Hct 36.5 % (37.0-47.0) L 01/12/25 03:52
Plt Count 194 10^3/uL (130-400) 01/12/25 03:52
PT 20.7 Sec (11.4-14.6) H 01/09/25 10:23
INR 1.76 01/09/25 10:23
APTT 41.9 Sec (23.4-35.0) H 01/09/25 10:23
Sodium 135 mmol/L (135-145) 01/12/25 03:52
Potassium 4.3 mmol/L (3.5-5.1) 01/12/25 03:52
BUN 31 mg/dl (7-17) H 01/12/25 03:52
Creatinine 1.1 mg/dL (0.6-1.0) H 01/12/25 03:52
Glucose 96 mg/dl (70-99) 01/12/25 03:52
Troponins
01/09/25
10:23
Troponin I 0.021
Vital Signs and I&O:
Vital Signs
Temp Pulse Resp BP Pulse Ox
98.4 F 57 20 101/57 94
01/12/25 06:41 01/12/25 04:00 01/12/25 06:41 01/12/25 03:45 01/12/25 06:41
Vital Signs
Temp Pulse Resp BP Pulse Ox
98.4 F 57 20 101/57 94
01/12/25 06:41 01/12/25 04:00 01/12/25 06:41 01/12/25 03:45 01/12/25 06:41
Intake & Output
01/10/25 01/11/25 01/12/25 01/13/25
06:59 06:59 06:59 06:59
Intake Total 500 / 500 350 / 350 480 / 480
Output Total 1400 / 1400 1525 / 1525 1100 / 1100
Balance -900 / -900 -1175 / -1175 -620 / -044
Physical Exam
Physical Exam
GEN: NAD, AAO x 3
LUNGS: RA. CTA B/L without wheeze
CV: SR on telemetry
EXT: No edema B/L LE
[2025-01-12] MEDS: VITAMIN B-12 2500 MCG PO (08:21)
[2025-01-12] MEDS: VITAMIN C 1000 MG PO (08:22)
[2025-01-12] MEDS: PACERONE 400 MG PO (08:22)
[2025-01-12] MEDS: TOPROL XL 75 MG PO (08:23)
[2025-01-12] MEDS: REFRESH CELLUVISC GEL 1 DROPS OPHTH (08:24)
[2025-01-12] MEDS: ELIQUIS 5 MG PO (08:24)
[2025-01-12] MEDS: OSCAL 500 + D 500 MG PO (08:29)
[2025-01-12] MEDS: ACTIGALL 300 MG PO (08:29)
[2025-01-12] MEDS: LASIX 40 MG PO (08:33)
--- NOTE | 2025-01-12 11:37 | W.PN.HOSP.TC ---
Today's Communication/Plan
-
dc home today
Assessment / Plan
Assessment / Plan
Assessment:
Acute HFpEF in setting of rapid persistent A. Fib
- recent admission with discontinuation of Tikosyn and loading with amiodarone
- returns with rapid A. Fib and concern for CHF
- s/p IV Lasix course. Continue Lasix 40mg daily
- Na and fluid restrictions. CHF education.
- s/p unsuccessful CV 12/26/2024; repeat attempt 01/11 initially successful then went into A. flutter
- continue Amiodarone 200mg BID; briefly required 400mg dosing for additional loading on 01/11.
- chronic anticoagulation - continue Eliquis
- DCA cards OP f/u
- eventual Ablation now rescheduled to 02/22/25
Essential HTN
- continue Metoprolol increased dose
Leukocytosis, resolved - likely reactive
Transaminitis likely passive congestion in setting of CHF
- monitor labs
Hypercholesterolemia
History of GERD/peptic ulcer disease
- continue H2 edi
History of vagal syncope and anxiety
- prn Xanax
Primary biliary cirrhosis
- on Ursodiol
History of kyphoscoliosis
History of hyperthyroidism
history of GI bleeding with AVMs and cautery
DVT ppx: Eliquis
Code: Full
More than 30 minutes spent in discharge including
Final examination of the patient
Summarizing hospital stay
Instructions for continuing care to all relevant caregivers
Preparation of discharge records, prescriptions, and referral forms
Total time spent (in minutes): 41
Anticipated Discharge: Today
Subjective/Interval History
-
Date of Service: January 12, 2025
s/p Cardioversion with Aflutter which required higher dose Amio for a few doses
now back in NSR no complaints
for DC today
Objective Data
-
Labs:
Laboratory Results
01/12/25
03:52
WBC 7.3
Hgb 12.1
Hct 36.5 L
Plt Count 194
Sodium 135
Potassium 4.3
Chloride 101
Carbon Dioxide 28
BUN 31 H
Creatinine 1.1 H
Glucose 96
Calcium 9.4
Total Bilirubin 0.9
AST 18
ALT 34
Alkaline Phosphatase 80
Vital Signs:
Vital Signs
Temp Pulse Resp BP Pulse Ox
98.4 F 57 20 101/47 97
01/12/25 06:41 01/12/25 11:00 01/12/25 06:41 01/12/25 06:36 01/12/25 08:00
I&O
01/11/25 01/12/25 01/13/25
06:59 06:59 06:59
Intake Total 350 / 350 480 / 480
Output Total 1525 / 1525 1100 / 1100 250 / 250
Balance -1175 / -1175 -620 / -620 -250 / -250
Physical Exam
-
General: No Apparent Distress
HEENT: Normocephalic and Atraumatic
Respiratory: Negative Wheezes
Cardiac: Regular Rhythm and S1/S2
GI: Soft and Nontender
Neuro: AO x 3
Psych: Calm
Data Reviewed
-
Total Time Spent with Patient (in minutes): 41
Labs: Labs Reviewed by me
--- NOTE | 2025-01-12 11:41 | W.DCSUMMARY ---
Discharge Summary
Discharge Data
Date of Admission: 01/09/25
Date of Discharge: 01/12/25
-
Pending Results: No
Hospital Course
84 y/o F with a history of medical history of paroxysmal atrial fibrillation status post cardioversion x 4, pulmonary vein isolation on Eliquis, hypertension, vasovagal syncope, hypercholesteremia, PACs/PVCs, HFpEF, moderate mitral regurgitation,
GERD, peptic ulcer disease, globus pharyngeus, colon polyps, diverticulosis, primary biliary cirrhosis, H. pylori, lumbar degenerative disease, scoliosis, hyperthyroidism, pelvic for dysfunction, iron deficiency anemia secondary to small bowel AVMs
status post enteroscopy cautery, dry eyes, anxiety, herpes simplex virus of clitoris, B12 deficiency, hypothyroidism presented to ER on 01/09 with SOB and Persistent Rapid A. Fib. Patient also ruled in for acute CHF.
She received a dose of IV Lopressor with improved rate control and home metoprolol was increased to 75mg BID. She underwent Cardioversion on 01/11 with temple to sinus rhythm briefly before converting to rate controlled A. Flutter. EP
Cardiology reviewed with general Cardiology and she was loaded with additional Amiodarone. She converted to normal sinus rhythm on 01/12 and will resume back her usual Amiodarone 200mg BID.
She Also received a course of IV diuretics and was placed on oral Lasix at discharge.
She is planned to have an ablation procedure in 02/22/25.
She was discharged home on 01/12/25.
Discharge Plan
-
Patient Disposition: Home (Routine Discharge)
Discharge Diagnosis/Procedures: persistent A. Fib s/p Cardioversion 01/11. Acute CHF treated with diuretics
Condition: Fair
Diet: 2 Gram Sodium and Restrict fluids to 48 oz
Activity: As tolerated
Specialty Instructions: Weigh Daily- Call MD for wt gain/loss 3 lbs overnight/5 lbs in 1 week
Instructions: *[facility] Heart Failure Instructions
Referrals:
Marek Hartley CRNP [Family Provider, Internal Medicine] - in one week
Madi Brown MD [Active, Cardiology] - 02/08/25 4:00 pm
Referral Note: You are scheduled to see Dr. Brown at [facility] on 02/08/2025 at 4 PM. Separately, you are scheduled for preadmission testing on 02/07/2025 at 12:40 PM, the cardiology office will mail you updated instructions with your
new date for ablation 02/22/2025. Please call [phone] if you need to reschedule
Additional Discharge Medication Instructions: - Continue your usual dose of Lasix (furosemide) 40 mg once daily
- Continue your usual dose of amiodarone 200 mg twice daily
- Increase your dose of Toprol-XL (metoprolol succinate) to 75 mg (one and a half tablets of a 50 mg tablet to equal 75 mg) twice daily.
Prescriptions:
New
furosemide 40 mg Tablet
40 mg PO DAILY Qty: 30 0RF
Continued
Eliquis 5 MG tablet
5 mg PO BID
alprazolam 0.5 MG tablet
0.5 mg PO HS
ursodiol 300 mg Capsule
300 mg PO TID
ascorbic acid (vitamin C) 1,000 mg Tablet
1,000 mg PO DAILY
famotidine 40 mg Tablet
40 mg PO HS
cyanocobalamin (vitamin B-12) 1,000 mcg/mL Solution
1,000 mcg IM QMONTH
estradiol 0.01 % (0.1 mg/gram) Cream
1 appful VAGINAL TUFR
hhmrlxbusime-dpptsxqr-pcfqmb Tablet
1 tab PO DAILY
calcium citrate-vitamin D3 315 mg-5 mcg (200 unit) Tablet
1 tab PO BID
cyanocobalamin (vitamin B-12) 2,500 mcg Tablet
2,500 mcg PO DAILY
carboxymethylcellulose sodium [Refresh Plus] 0.5 % Dropperette
1 drp BOTH EYES BID
acetaminophen [Tylenol] 325 mg Tablet
650 mg PO Q6HPRN PRN (Reason: mild pain)
cyclosporine [Restasis] 0.05 % Dropperette
1 drp BOTH EYES Q12H
amiodarone [Pacerone] 200 mg tablet
200 mg PO BID Qty: 60 0RF
Rx Instructions:
starting 12/30/24 take 200 mg twice a day for 4 weeks then decrease to 200 mg daily
metoprolol succinate 50 mg tablet extended release 24 hr
50 mg PO BID Qty: 60 0RF
Rx Instructions:
patient will take 1.5 tablets BID (total 75mg)
Discharge Orders:
Discharge Patient (As Directed); Ordered 01/12/25
Ordered By: Hailey Graves
Care Plan Goals
Care Plan Goals:
Problem: Readiness for enhanced knowledge related to diagnosis and treatment plan
Goal: Understand your diagnosis and treatment plan needs, including medications if applicable.
Instructions: Know your diagnosis, underlying causes and treatment plan options, including medications if applicable. Consult with your health care team to learn about your diagnosis and treatment plan, including medications if applicable.
Discharge Date and Time
Print Language: SUDANESE
[2025-01-12 11:54] VITALS: BP 107/58
--- NOTE | 2025-01-12 13:00 | PTCARENOTE ---
Pt has been up and ambulatory in the hallway doing laps and very active walking around in her room. Pt is to be discharged today.
--- NOTE | 2025-01-12 15:17 | PTCARENOTE ---
Pt received this am in SB - SR rate in the 50's to 60's. Denies any pain, sob or palpitations. OOB ad rigo, gait steady. Room air sat 97%.
--- NOTE | 2025-01-12 15:35 | PTCARENOTE ---
Pt dischared home with daughter. D/C instructions given and reviewed with good understanding and all questions were answered.
== END 2025-01-12 15:26 | disposition home or self-care (01) | DRG 291 ==
LOC: IVU 13:18
PROVIDERS: Registered Nurse; Student in an Organized Health Care Education/Training Program; ADMITTING PHYSICIAN Hospitalist; ATTENDING PHYSICIAN Internal Medicine; CONSULT PHYSICIAN Internal Medicine Cardiovascular Disease; EMERGENCY PHYSICIAN Emergency Medicine; FAMILY PHYSICIAN Nurse Practitioner Adult Health
PROC: 5A2204Z Restoration of Cardiac Rhythm, Single (ICD-10-PCS; 2025-01-11)
DX: I11.0 Hypertensive heart disease with heart failure (principal); I50.31 Acute diastolic (congestive) heart failure; I48.19 Other persistent atrial fibrillation; K21.9 Gastro-esophageal reflux disease without esophagitis; E03.9 Hypothyroidism, unspecified; E78.00 Pure hypercholesterolemia, unspecified; Z87.11 Personal history of peptic ulcer disease; Z86.0100 Personal history of colon polyps, unspecified; K74.3 Primary biliary cirrhosis; D51.9 Vitamin B12 deficiency anemia, unspecified; M41.9 Scoliosis, unspecified; F41.9 Anxiety disorder, unspecified; D50.9 Iron deficiency anemia, unspecified; G47.00 Insomnia, unspecified; Z87.891 Personal history of nicotine dependence; Z79.01 Long term (current) use of anticoagulants; Z79.899 Other long term (current) drug therapy; Z80.3 Family history of malignant neoplasm of breast; Z11.52 Encounter for screening for COVID-19
CPT/HCPCS: 71046; 80053; 80061; 83735; 83880; 84443; 84484; 85025; 85027; 85610; 85730; 87811; 92960; 93005; 99285

== ENCOUNTER → 2025-01-30 13:29 | Outpatient (REF) | payer OTHER, SELFPAY ==
[2025-01-30 16:04] LABS: ALT (SGPT) 16 U/L (0-35); AST (SGOT) 25 U/L (14-36); Albumin 4.5 g/dl (3.5-5.0); Alkaline Phosphatase 73 U/L (38-126); Blood Urea Nitrogen 45 mg/dl (7-17); Calcium 9.5 mg/dl (8.4-10.2); Chloride 95 mmol/L (98-107); Glucose 98 mg/dl (70-99); Potassium 4.1 mmol/L (3.5-5.1); Sodium 134 mmol/L (135-145); Total Protein 7.3 g/dl (6.3-8.2); eGFR 41.06
[2025-01-30 16:12] LABS: Carbon Dioxide 33 mmol/L (22-30)
== END ==
LOC: REG 13:29
PROVIDERS: ATTENDING PHYSICIAN Nurse Practitioner Adult Health; OTHER PHYSICIAN Internal Medicine Interventional Cardiology
DX: Z79.899 Other long term (current) drug therapy (principal)
CPT/HCPCS: 36415; 80053; 84443

== ENCOUNTER → 2025-01-31 13:30 | Outpatient (REF) | payer OTHER, SELFPAY | LOC: RCS 13:30 | PROVIDERS: ATTENDING PHYSICIAN Internal Medicine Interventional Cardiology; FAMILY PHYSICIAN Nurse Practitioner Adult Health | DX: I48.0 Paroxysmal atrial fibrillation (principal) | CPT/HCPCS: 93306 ==

== ENCOUNTER 2025-02-22 05:51 | Day surgery (SDC) | payer OTHER, SELFPAY ==
[2025-02-07 12:39] VITALS: BMI 21.5
[2025-02-07 13:17] LABS: Hematocrit 40.0 % (37.0-47.0); Hemoglobin 13.4 g/dL (12.0-16.0); Mean Corp Hgb Conc. 33.5 g/dL (33.0-37.0); Mean Corpuscular Volume 94.8 fL (81.0-99.0); Nucleated Red Blood Cells % 0 %; Platelet Count 166 10^3/uL (130-400); Red Cell Dist. Width 12.7 % (11.5-14.5)
[2025-02-07 13:27] LABS: INR 1.26; PT 16.0 Sec (11.4-14.6)
[2025-02-07 13:36] LABS: ALT (SGPT) 17 U/L (0-35); AST (SGOT) 24 U/L (14-36); Albumin 4.7 g/dl (3.5-5.0); Alkaline Phosphatase 74 U/L (38-126); Blood Urea Nitrogen 34 mg/dl (7-17); Calcium 9.9 mg/dl (8.4-10.2); Carbon Dioxide 32 mmol/L (22-30); Chloride 97 mmol/L (98-107); Estimated Creatinine Clearance 34 ml/min; Glucose 98 mg/dl (70-99); Magnesium 2.2 mg/dl (1.6-2.3); Potassium 4.9 mmol/L (3.5-5.1); Sodium 135 mmol/L (135-145); Total Protein 7.7 g/dl (6.3-8.2); eGFR 45.19
[2025-02-22] VITALS (14 sets, daily range): BP systolic 98–154; BP diastolic 52–72; BMI 20.8
[2025-02-22 08:39] LABS: ACT-LR - POC 297 Seconds (116-155)
[2025-02-22 09:02] LABS: ACT-LR - POC 290 Seconds (116-155)
--- NOTE | 2025-02-22 09:13 | ITS.CL.ABL ---
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
Ablation
Procedure Report:
ELECTROPHYSIOLOGY ABLATION STUDY
DATE:: February 22, 2025�����������������������������REFERRING: Dr. Vaughn Leslie
INDICATION: Paroxysmal supraventricular tachycardia in the form of atrial fibrillation.��Prior pulmonary vein isolation and CTI flutter ablation in 2019 and had done well for many years until recent recurrence of rapid atrial fibrillation. Placed
on amiodarone which had rendered to her atrial fibrillation low burden but she is having some symptomatic side effects
HISTORY: See H and P.��As above
ANTIARRHYTHMIC DRUG: Amiodarone 200 mg daily
PRE-PROCEDURE AIMEE: No intracardiac thrombus
PRESENTING RHYTHM: Sinus bradycardia
'TIME-OUT':��called and confirmed.
SEDATION/ANESTHESIA:��provided via the anesthesia department using general anesthesia (LMA).
INTRAVENOUS/ARTERIAL ACCESS:
Right femoral venous -8Fr
Left femoral venous - 8 Fr, 6 Fr
Xyhztb-ly-clbis suture bilaterally
Ultrasound guidance for bilateral femoral vein access was utilized by me to obtain access with demonstration of normal anatomy
CHADS-VASC Score:
HAS-Bled Score
PROCEDURE:
1.��A decapolar CS catheter was placed within the CS for mapping and pacing.��This was also used as the reference catheter for the 3-D map.
2. The intracardiac ultrasound catheter was positioned in the RA to identify the FO for targeting of transseptal puncture, assist��in identification of the pulmonary vein ostia, monitoring pre and post ablation pulmonary vein flow velocities,
monitoring for 'bubble' formation during RF application as a sign of thermal injury,��and to monitor for pericardial effusion during mapping and ablation procedure.���Left atrial size, LV ejection fraction, and pulmonary vein flows were monitored
pre and post ablation procedure. The other valves were inspected and found to be free of significant regurgitation or stenosis. Of note mild to moderate mitral digitation during procedure.
3.��Half of the calculated heparin bolus was administered prior to the first transeptal puncture.��Transseptal puncture was performed to diagnose RA and LA pressure so that safety of LA mapping and ablation could be further assessed, and to access
the left atrium and pulmonary veins for mapping and ablation.��This entailed advancing an 8 Fr SL-1 sheath with dilator into the superior vena cava and withdrawing both (monitoring intracardiac ultrasound, fluoroscopy and tip pressure) with the tip
oriented toward the atrial septum.��The fossa ovalis was engaged (indicated by sudden displacement of the sheath tip as well as tenting of the fossa seen on intracardiac ultrasound).��Left atrial access required a pass with the Brockenbrough needle
extended.��Left atrial catheter position was confirmed by pressure monitoring (RA mean pressure 8 mm Hg and LA mean presure 12 mm Hg), LA saturation (99%),��as well as fluoroscopy.��The sheath was advanced over the dilator and positioned in the left
atrium.��This procedure was repeated for the Agilis sheath.��The remainder of the calculated heparin bolus was administered and heparin was
infused to maintain ACT at 300 -350 seconds throughout the case. Transseptal was made somewhat complex given the patient's extreme thoracic scoliosis. A safe step wire was utilized for safety
4.��RA pacing was performed via the proximal decapolar poles and LA pacing was performed via the distal decapolr poles.
5. A quadrapolar catheter was first positioned at the His position for His Bundle recording which was tagged via the 3D Nexus eWatertronic, and then passed to the RVA for RV pacing and recording.
6. The 9 mm lattice was placed in each of the LIPV, LSPV, RSPV and the RIPV.��The right veins were superiorly directed fluoroscopically and were treated as a common ostium. At baseline there was focal connection at the pancho of the left superior
pulmonary vein and the posterior and inferior regions of the right inferior pulmonary vein. The right superior pulmonary vein and left inferior pulmonary vein were isolated at baseline.
7.��Next, a 3-D map was created using Zonoff.���A 3-D reconstructed CT image was compared to the 3-D Medtronic map to assist in anatomic interpretation, mapping and ablation.��The CT image and the Medtronic image were fused.
8. Utilizing wide sleetmute ablation around the left pulmonary veins and roof pancho and posterior wall outside the right pulmonary veins entrance and exit block was confirmed in all 4 pulmonary veins. We then performed a box lesion set with a
roofline and floor line connecting the wide circumferential ablation rendering the posterior wall isolated. Additional substrate was modified at the base of the left atrial appendage and the floor of the left atrium. Moving from left to right
veins was extremely challenging given the thoracic scoliosis and the right veins fluoroscopically were were markedly superiorly directed. Intracardiac ultrasound was utilized to navigate from right inferior pulmonary vein to the right superior
pulmonary vein.
9. Bidirectional block was noted across the CTI flutter ablation from prior with intra isthmus conduction time of 150 ms bilaterally. Pacing from both sides line demonstrated bidirectional block.
TOTAL FLOURO TIME: 18.1 minutes
TOTAL RF DURATION: 0 minutes
REVERSAL OF HEPARIN: 35 mg of protamine, slow IV administration
COMPLICATIONS:
None
Intracardiac US shows no pericardial effusion post ablation.
SUMMARY:��
Complex left atrial mapping and ablation.
Reisolation of the left superior pulmonary vein at the pancho and the right inferior pulmonary vein at the posterior wall and inferior regions. Entrance exit block achieved in all 4 pulmonary veins and a box lesions in the posterior wall isolating
the posterior wall. The CTI flutter ablation for prior procedure in 2019 had persistent bidirectional block.
RECOMMENDATIONS:
1. Ambulate in 4 hours
2. Resume anticoagulation
3.��Consider same-day discharge
4.��Discontinue amiodarone at first office visit if the patient is without arrhythmia
Copy to: Dr. Vaughn Leslie
--- NOTE | 2025-02-22 14:45 | W.PN.UPDATE ---
Update Note
Progress Note Update
84 yo WF s/p redo PVI (Same day). She denies cp, sob, ghislaine diet, voiding, amb w/o dizziness, EKG SR, b/l groins c/d/i no HT, soft. She will resume Eliquis tonight. She will continue amiodarone and decrease metoprolol xl to 50mg hs. Activity
restrictions reviewed. She will f/u Blank in 3 mo at that time dissucssion will be made about stopping amiodarone. SHe is for d/c home after 2p.
== END 2025-02-22 14:30 | disposition home or self-care (01) ==
LOC: CATH 05:51
PROVIDERS: ATTENDING PHYSICIAN Internal Medicine Cardiovascular Disease; FAMILY PHYSICIAN Nurse Practitioner Adult Health; OTHER PHYSICIAN Internal Medicine Interventional Cardiology
DX: I48.0 Paroxysmal atrial fibrillation (principal); I11.0 Hypertensive heart disease with heart failure; K74.3 Primary biliary cirrhosis; I47.10 Supraventricular tachycardia, unspecified; G47.00 Insomnia, unspecified; F41.9 Anxiety disorder, unspecified; M41.9 Scoliosis, unspecified; M81.0 Age-related osteoporosis without current pathological fracture; Z87.891 Personal history of nicotine dependence; Z79.01 Long term (current) use of anticoagulants; Z79.899 Other long term (current) drug therapy; Z86.0100 Personal history of colon polyps, unspecified; Z86.19 Personal history of other infectious and parasitic diseases; Z87.11 Personal history of peptic ulcer disease; F32.A Depression, unspecified; E78.00 Pure hypercholesterolemia, unspecified; Z88.1 Allergy status to other antibiotic agents; Z88.8 Allergy status to other drugs, medicaments and biological substances; Z90.721 Acquired absence of ovaries, unilateral; Z90.79 Acquired absence of other genital organ(s); N28.9 Disorder of kidney and ureter, unspecified; E05.90 Thyrotoxicosis, unspecified without thyrotoxic crisis or storm; D50.9 Iron deficiency anemia, unspecified; H04.123 Dry eye syndrome of bilateral lacrimal glands; E53.8 Deficiency of other specified B group vitamins
CPT/HCPCS: C1733; C1894 ×2; C1730; C1766; C1892; C1759; 36415; 80053; 83735; 85025; 85347; 85610; 86850; 86900; 86901; 93005; 93656; 93657